=== PATIENT | male | born 1965 | race Caucasian/White ===

== ENCOUNTER 2018-02-23 14:46 | Inpatient (IN) | payer OTHER ==
[2018-02-23] MEDS ORDERED: ONDANSETRON 4 MG/2 ML VIAL IVP STA (15:05)
[2018-02-23] MEDS ORDERED: MORPHINE SULFATE/PF 10MG/10ML VL IV STA (15:05)
[2018-02-23] MEDS ORDERED: SODIUM CHLORIDE 0.9% 1,000 ML IV STA (15:05)
[2018-02-23] MEDS ORDERED: cefTRIAXone 2,000 MG in SODIUM CHLORIDE 0.9% 100 ML IVPB STA (15:12)
[2018-02-23] MEDS ORDERED: cefTRIAXone IN SWFI 2,000 MG/20 ML SYRINGE IVP STA (15:13)
[2018-02-23 15:46] LABS: Basophils % (A) 1 %; Eosinophils # (A) 0.1 k/uL (0-0.7); Eosinophils % (A) 2 %; HCT 31.5 % (39.0-53.0); HGB 10.7 gm/dL (13.0-17.5); Lymphocytes # (A) 0.6 k/uL (1.0-4.8); Lymphocytes % (A) 8 %; MCH 33.3 pg (25.0-35.0); MCHC 33.9 g/dL (31.0-37.0); MCV 98.2 fL (80.0-100.0); Mean Platelet Volume 9.6; Monocytes # (A) 0.6 k/uL (0-1.0); Monocytes % (A) 8 %; Neutrophils # (A) 5.9 k/uL (1.3-7.7); Neutrophils % (A) 80 %; RBC 3.21 m/uL (4.30-5.90); RDW 15.3 % (11.5-15.5); WBC 7.4 k/uL (3.8-10.6)
--- NOTE | 2018-02-23 15:54 | XR ---
EXAMINATION TYPE: XR chest 2V DATE OF EXAM: 02/23/2018 COMPARISON: Prior chest x-ray 11/29/2015 HISTORY: Chest pain TECHNIQUE: Frontal and lateral views of the chest are obtained. FINDINGS: There is increased retrocardiac density with obscured lateral aspect of the left hemidiaphr agm. No evident pneumothorax. Heart is enlarged, patient is rotated. Pulmonary vascularity and wyatt s how a similar appearance accounting for differences in technique. Exam appears expiratory. IMPRESSION: Findings could represent a left lower lobe pneumonia and associated effusion, follow-up recommended. There may be cardiomegaly. Follow-up is recommended.
[2018-02-23 15:56] LABS: ALT 29 U/L (21-72); AST 46 U/L (17-59); Albumin 2.8 g/dL (3.5-5.0); Alkaline Phosphatase 103 U/L (38-126); Anion Gap 7 mmol/L; Blood Urea Nitrogen 15 mg/dL (9-20); Calcium 8.3 mg/dL (8.4-10.2); Carbon Dioxide 26 mmol/L (22-30); Chloride 102 mmol/L (98-107); Glucose 87 mg/dL (74-99); Magnesium 1.7 mg/dL (1.6-2.3); Potassium 5.1 mmol/L (3.5-5.1); Sodium 135 mmol/L (137-145); Total Bilirubin 4.3 mg/dL (0.2-1.3); Total Protein 5.4 g/dL (6.3-8.2)
[2018-02-23 16:07] LABS: Creatine Kinase 77 U/L (55-170)
[2018-02-23 16:19] LABS: D-Dimer 11.69 mg/L FEU (<0.60); INR 1.5 (<1.2); Prothrombin Time 13.6 sec (9.0-12.0)
[2018-02-23 16:20] LABS: Creatine Kinase MB 0.4 ng/mL (0.0-2.4); Ovalocytes Present; Partial Thromboplastin Time 28.7 sec (22.0-30.0); Platelet Count 67 k/uL (150-450); RBC Fragments Present; Troponin I <0.012 ng/mL (0.000-0.034)
[2018-02-23] MEDS ORDERED: metroNIDAZOLE-NS PMX 500 MG in SALINE 1 100ML.BAG IVPB STA (17:25)
[2018-02-23] MEDS ORDERED: RX INFO: IV CONTRAST WAS GIVEN 1 EACH MISC MISCELLANE PRN (17:25)
--- NOTE | 2018-02-23 17:37 | ED ---
Chest Pain HPI - General Chief Complaint: Chest Pain Stated Complaint: Chest Pain Time Seen by Provider: 02/23/18 15:04 Source: patient Mode of arrival: ambulatory Limitations: no limitations - History of Present Illness Initial Comments: 53 years old male came in with chest pain, he had 2 procedures done today he status post paracentesis and thoracentesis, and arrival he has also elevated temperature which even elevated further. His stay in the ER chest pain gets worse with a deep breaths he has been coughing with some phlegm. He denies any headache no neck pain no neck stiffness has shortness of breath has chest pain worse with a deep breaths no abdominal pain no frequency urgency dysuria him a no signs of TIA or CVA - Related Data Home Medications Medication Instructions Recorded Confirmed Amitriptyline HCl [Elavil] 25 mg PO HS 11/29/15 02/23/18 Albuterol Nebulized [Ventolin 2.5 mg INHALATION RT-TID 02/23/18 02/23/18 Nebulized] Cholestyramine (with Sugar) 4 gm PO BID 02/23/18 02/23/18 [Cholestyramine Packet] Furosemide [Lasix] 40 mg PO DAILY 02/23/18 02/23/18 Hydrocortisone Suppository 25 mg RECTAL BID PRN 02/23/18 02/23/18 [Anusol-Hc] Lactulose 10 gm PO BID 02/23/18 02/23/18 Omeprazole [PriLOSEC] 20 mg PO AC-BRKFST 02/23/18 02/23/18 Propranolol HCl 10 mg PO TID 02/23/18 02/23/18 Spironolactone 100 mg PO QAM 02/23/18 02/23/18 Allergies Allergy/AdvReac Type Severity Reaction Status Date / Time Quinolones Allergy Unknown Verified 02/23/18 15:56 tetanus and diphtheria Allergy Unknown Verified 02/23/18 15:56 toxoids [tetanus & diphtheria toxoids] Review of Systems ROS Statement: Those systems with pertinent positive or pertinent negative responses have been documented in the HPI. ROS Other: All systems not noted in ROS Statement are negative. Past Medical History Past Medical History: Sleep Apnea/CPAP/BIPAP, Supraventricular Tachycardia (SVT) Additional Past Medical History / Comment(s): neuropathy, liver failure. History of Any Multi-Drug Resistant Organisms: None Reported Past Surgical History: Hernia Repair Past Anesthesia/Blood Transfusion Reactions: No Reported Reaction Past Psychological History: No Psychological Hx Reported Smoking Status: Current every day smoker Past Alcohol Use History: None Reported, Daily Past Drug Use History: None Reported - Past Family History Father Additional Family Medical History / Comment(s): aortic valve replacement Mother Family Medical History: No Reported History General Exam - General Exam Comments Initial Comments: General: The patient is awake and alert, in severe distress Skin: Skin is warm and dry and no rashes or lesions are noted. Eye: Pupils are equal, round and reactive to light, extra-ocular movements are intact; there is normal conjunctiva bilaterally. Ears, nose, mouth and throat: There are moist mucous membranes and no oral lesions. Neck: The neck is supple, there is no tenderness no signs of neck stiffness or meningitis Cardiovascular: There is a regular rate and rhythm. No murmur, rub or gallop is appreciated. Respiratory: To auscultation bilateral, poor air exchange secondary to pain Gastrointestinal: Soft, non-distended, non-tender abdomen without masses or organomegaly noted. There is no rebound or guarding present. Bowel sounds are unremarkable. Back: There is no tenderness to palpation in the midline. There is no obvious deformity. Musculoskeletal: Normal ROM, no tenderness, There is no pedal edema. There is no calf tenderness or swelling. No cords were appreciated. Neurological: CN II-XII intact, Cranial nerves III through XII are intact. There are no obvious motor or sensory deficits. Coordination appears grossly intact. Speech is normal. Psychiatric: Cooperative, appropriate mood & affect, normal judgment. Limitations: no limitations Course Vital Signs 02/23/18 02/23/18 02/23/18 14:50 15:54 17:00 Temperature 100.0 F H 100.7 F H Pulse Rate 79 77 69 Respiratory 18 18 22 Rate Blood Pressure 124/71 135/69 157/56 O2 Sat by Pulse 100 98 Oximetry EKG is normal sinus rhythm ventricular rate is 76 AK interval is 158 QRS duration is 88 QT/QTc is 370/416 review of this EKG does not reveal any ST elevation or ST depression Patient is reassessed, CBC is normal d-dimer is 11.69 compressive metabolic panel is unremarkable INR is 1.5 troponin is negative EKG was unremarkable chest x-ray confirmed pneumonia and pleural effusion and he did spike a fever couple times in the ER, I cultured blood and urine and started him on numb and antibiotics Rocephin 2 g IV added Flagyl considering he had a paracentesis today , Dr Shi will f/u on the ct chest angio to R/o PE, spoke with the Dr. Quezada for admission for the 3 sets of cardiac markers with the chest pain and CT angiogenesis still pending Disposition Clinical Impression: Pneumonia, Chest pain, Elevated d-dimer Disposition: ADMITTED IP TO THIS HOSP Condition: Good Referrals: Cherry Ortiz MD [Primary Care Provider] - 1-2 days
[2018-02-23] MEDS ORDERED: ONDANSETRON 4 MG/2 ML VIAL IVP PRN (17:42)
[2018-02-23] MEDS ORDERED: NALOXONE 0.4 MG/ML 1 ML VIAL IV PRN (17:42)
[2018-02-23] MEDS ORDERED: HYDROCORTISONE SUPPOSITORY 25 MG SUPP RECTAL PRN (17:47)
--- NOTE | 2018-02-23 18:34 | CT ---
EXAMINATION TYPE: CT angio chest DATE OF EXAM: 02/23/2018 5:59 PM COMPARISON: NONE HISTORY: Shortness of breath. History of liver failure. Thoracentesis and paracentesis today. CT DLP: 579 mGycm Automated exposure control for dose reduction was used. CONTRAST: CTA scan of the thorax is performed with IV Contrast, patient injected with 100 mL of Isovue 370, pul monary embolism protocol. There are 3-D post processed images.. FINDINGS: There is moderate left pleural effusion. There is small right pleural effusion. There is consolidatio n and atelectasis at the lung bases and more on the left side. Heart is enlarged. There is no pericar dial effusion. There is probably ascites. I see no filling defects in the pulmonary arteries. There is no mediastinal adenopathy. There are no hilar masses. There is no evidence of aortic aneurysm or dissection. Ascending aorta measures 3.5 cm. Bony structures are intact. IMPRESSION: NO EVIDENCE OF PULMONARY EMBOLISM. PLEURAL EFFUSIONS WITH CONSOLIDATION AND ATELECTASIS AT THE LUNG BASES. MILD CARDIOMEGALY. PROBABLE A SCITES. THERE IS A VERY TINY LEFT APICAL PNEUMOTHORAX CONSISTENT WITH THE THORACENTESIS TODAY.
--- NOTE | 2018-02-23 18:43 | P.HPIM ---
History of Present Illness H&P Date: 02/23/18 Chief Complaint: Chest pain The patient is a 52-year-old male the past medical history of alcoholic liver cirrhosis who presents to the ER with chief complaint of chest pain. Apparently earlier today the patient underwent a thoracic centesis and paracentesis secondary to recurrent pleural effusion and abdominal ascites related to his ongoing liver cirrhosis. The patient reports that approximately 3 L was taken from his left lung and approximately 2 L was taken from his abdomen, following these procedures the patient was on his way home and driving and suddenly felt left sided 10 out of 10 squeezing chest pressure, with no associated nausea vomiting or diaphoresis or shortness of air. The patient reports intermittent cough and also reports intermittent fevers The patient reports the pain had been ongoing for the last several hours of relief. The patient reports having stress test this past Tuesday at [facility] as part of his pre-potential liver transplant workup, the patient is unaware of the results. At in the ER the patient had a elevated d-dimer of 11.59, his initial EKG and cardiac enzymes are negative for any sedation acute ischemia, chest x-ray suggested a possible left lower lobe pneumonia and associated effusion, subsequent CTA was negative for any acute pulmonary embolism but did show pleural effusions with consolidation and atelectasis at the lung bases, mild cardiomegaly and probable ascites and a tiny left apical pneumothorax consistent with today's thoracentesis Past Medical History Past Medical History: Sleep Apnea/CPAP/BIPAP, Supraventricular Tachycardia (SVT) Additional Past Medical History / Comment(s): neuropathy, liver failure. History of Any Multi-Drug Resistant Organisms: None Reported Past Surgical History: Hernia Repair Past Anesthesia/Blood Transfusion Reactions: No Reported Reaction Past Psychological History: No Psychological Hx Reported Smoking Status: Current every day smoker Past Alcohol Use History: None Reported, Daily Past Drug Use History: None Reported - Past Family History Father Additional Family Medical History / Comment(s): aortic valve replacement Mother Family Medical History: No Reported History Medications and Allergies Home Medications Medication Instructions Recorded Confirmed Type Amitriptyline HCl [Elavil] 25 mg PO HS 11/29/15 02/23/18 History Albuterol Nebulized [Ventolin 2.5 mg INHALATION RT-TID 02/23/18 02/23/18 History Nebulized] Cholestyramine (with Sugar) 4 gm PO BID 02/23/18 02/23/18 History [Cholestyramine Packet] Furosemide [Lasix] 40 mg PO DAILY 02/23/18 02/23/18 History Hydrocortisone Suppository 25 mg RECTAL BID PRN 02/23/18 02/23/18 History [Anusol-Hc] Lactulose 10 gm PO BID 02/23/18 02/23/18 History Multivitamin [Men's Multi-Vitamin] 1 tab PO DAILY 02/23/18 02/23/18 History Omeprazole [PriLOSEC] 20 mg PO AC-BRKFST 02/23/18 02/23/18 History Propranolol HCl 10 mg PO TID 02/23/18 02/23/18 History Spironolactone 100 mg PO QAM 02/23/18 02/23/18 History Turmeric Root Extract [Turmeric] 500 mg PO DAILY 02/23/18 02/23/18 History Ubidecarenone [Co Q-10] 100 mg PO DAILY 02/23/18 02/23/18 History Allergies Allergy/AdvReac Type Severity Reaction Status Date / Time gabapentin Allergy Unknown Verified 02/23/18 18:16 Quinolones Allergy Unknown Verified 02/23/18 15:56 tetanus and diphtheria Allergy Unknown Verified 02/23/18 15:56 toxoids [tetanus & diphtheria toxoids] Physical Exam Vitals: Vital Signs Temp Pulse Resp BP Pulse Ox 02/23/18 17:56 73 20 118/61 98 02/23/18 17:00 69 22 157/56 02/23/18 15:54 100.7 F H 77 18 135/69 98 02/23/18 14:50 100.0 F H 79 18 124/71 100 Intake and Output 02/23/18 02/23/18 02/23/18 06:59 14:59 22:59 Output Total 25 Balance -25 Output: Urine 25 Other: Weight 106.594 kg Constitutional: No acute distress, conversant, pleasant Eyes: Anicteric sclerae, moist conjunctiva, no lid-lag, PERRLA ENMT: NC/AT,Oropharynx clear, no erythema, exudates Neck:Supple, FROM, no masses, or JVD, No carotid bruits; No thyromegaly Lungs: Clear to auscultation, Clear to percussion, Normal respiratory effort, no accessory muscle use Cardiovascular: Heart regular in rate and rhythm, No murmurs, gallops, or rubs no peripheral edema Abdominal: Soft Nontender, nom distended, no guarding, no rebound or rigidity, Normoactive bowel sounds No hepatomegaly, No splenomegaly, No palpable mass No abdominal wall hernia noted Skin: Normal temperature, tone, texture, turgor, No induration No subcutaneous nodules, No rash, lesions, No ulcers Extremities:No digital cyanosis No clubbing, Pedal pulses intact and symmetrical Radial pulses intact and symmetrical Normal gait and station, No calf tenderness Psychiatric: Alert and oriented to person, place and time, Appropriate affect Intact judgement Neuro: Muscles Strength 5/5 in all 4 extremities, Sensation to light touch grossly present throughout, Cranial nerves II-XII grossly intact. No focal sensory deficits Results CBC & Chem 7: 02/23/18 15:25 02/23/18 15:25 Labs: Abnormal Lab Results - Last 24 Hours (Table) 02/23/18 02/23/18 02/23/18 Range/Units 15:25 15:25 15:25 RBC 3.21 L (4.30-5.90) m/uL Hgb 10.7 L (13.0-17.5) gm/dL Hct 31.5 L (39.0-53.0) % Plt Count 67 L (150-450) k/uL Lymphocytes # 0.6 L (1.0-4.8) k/uL PT 13.6 H (9.0-12.0) sec INR 1.5 H (<1.2) D-Dimer 11.69 H (<0.60) mg/L FEU Sodium 135 L (137-145) mmol/L Calcium 8.3 L (8.4-10.2) mg/dL Total Bilirubin 4.3 H (0.2-1.3) mg/dL Total Protein 5.4 L (6.3-8.2) g/dL Albumin 2.8 L (3.5-5.0) g/dL Assessment and Plan Assessment: Chronic conditions Chronic thrombocytopenia Alcoholic cirrhosis 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 Neuropathy (1) Atypical chest pain Current Visit: Yes Status: Acute Code(s): R07.89 - OTHER CHEST PAIN SNOMED Code(s): 631775780 (2) Alcoholic cirrhosis of liver Current Visit: Yes Status: Acute Code(s): K70.30 - ALCOHOLIC CIRRHOSIS OF LIVER WITHOUT ASCITES SNOMED Code(s): 963789965 (3) Pneumonia Current Visit: Yes Status: Acute Code(s): J18.9 - PNEUMONIA, UNSPECIFIED ORGANISM SNOMED Code(s): 963961960 (4) Intermittent fever Current Visit: Yes Status: Acute Code(s): R50.9 - FEVER, UNSPECIFIED SNOMED Code(s): 39278035 (5) Coagulopathy Current Visit: Yes Status: Acute Code(s): D68.9 - COAGULATION DEFECT, UNSPECIFIED SNOMED Code(s): 41234491 Plan: The patient is admitted for atypical chest pain anticipate a less than 2 midnight stay. His initial EKG and cardiac enzymes are negative for any acute ischemia. Continue with routine chest pain orders. We'll attempt to request records from [facility] regarding his stress test that he had on Tuesday, we'll also request records from [facility] regarding patient's procedure and last discharge summary. We'll plan to consult ID for patient's intermittent fevers there's a possibility he does have pneumonia we'll continue her current antibiotic regimen. We'll plan to consult cardiology for further recommendations. Of note the patient does have chronic coagulopathy likely related to his underlying alcoholic liver cirrhosis, along with chronic thrombocytopenia. The patient's hyperbilirubinemia is also likely chronic due to his underlying alcoholic cirrhosis.
[2018-02-23] MEDS: ALBUTEROL NEBULIZED 2.5 MG/3 ML INHALATION SCH (20:15)
[2018-02-23 21:14] VITALS: BMI 34.3
[2018-02-23] MEDS: PROPRANOLOL 10 MG TAB PO SCH (21:18)
[2018-02-23] MEDS: LACTULOSE 20 GM/30 ML CUP PO SCH (21:18)
[2018-02-23] MEDS: AMITRIPTYLINE HCL 25 MG TAB PO SCH (21:18)
[2018-02-23] MEDS: CHOLESTYRAMINE (WITH SUGAR) 4 GM PACKET PO SCH (21:18)
[2018-02-23] MEDS: MORPHINE SULFATE/PF 10MG/10ML VL IV PRN (21:20)
--- NOTE | 2018-02-23 21:45 | CONS ---
CONSULTATION Aaron Garcia is a 52-year-old gentleman with advanced liver disease/cirrhosis secondary to alcoholism, which he finally quit drinking in April or May of last year. He has his health care for his liver issues at [facility]. Earlier today, he had 2 L of fluid taken out from his abdomen and this was all ascitic fluid. He also had 3 L taken from his left lung area, a pleural effusion. After this, he came into the hospital with progressively worsening pleuritic pain and has been hospitalized. He also had an elevated D-dimer and a CT angiography was performed which did not reveal any pulmonary embolism. Both thoracentesis on the left side and paracentesis were performed at [facility] and about 2 days ago, this gentleman had a nuclear scan with Lexiscan, which was normal per patient. He had a complete cardiac workup as well. Two years ago, he had a cardiac cath which revealed mild disease in the branches of RCA. He is resting comfortably at the time of my evaluation. His pleuritic pain has also been better. PAST MEDICAL HISTORY: 1. Advanced liver disease with cirrhosis secondary to alcoholism. 2. History of anemia. 3. History of paroxysmal supraventricular tachycardia, which is not an active problem at this time. He also has obstructive sleep apnea, wears a CPAP, but not very consistently. 4. The patient continues to smoke every day, but has stopped alcohol since April or May of last year. ALLERGIES: He is allergic to QUINOLONES and TETANUS TOXOID. MEDICATIONS: Include: 1. Prilosec. 2. Propranolol 10 mg t.i.d. 3. Aldactone 100 mg daily. 4. Amitriptyline 25 mg daily. 5. Lasix 40 mg daily. 6. Hydrocortisone suppository. His CT and angiography revealed that he has a consolidation/pneumonia involving the left lung more than the right lung. There is a small right-sided pleural effusion, moderate left-sided pleural effusion. There is a borderline cardiac enlargement. No pericardial effusion. There is no evidence of any pulmonary embolism and no evidence of any aortic pathology. EXAMINATION: Blood pressure is 130/70, pulse rate 70 per minute, regular. HEENT: Unremarkable. Fundus was not examined by me. Patient appears to be slightly jaundiced. Neck is supple. There is JVD of 1 cm. No carotid bruit. Heart reveals S1, S2 with a short systolic murmur at left sternal border. Lungs reveal diminished breath sounds both bases, more so on the left. Abdomen is distended. Free fluid is evident. Lower extremities reveal diminished pulses. There is bilateral 2+ edema. CENTRAL NERVOUS SYSTEM: Grossly no focal deficits. EKG revealed sinus mechanism, poor R-wave progression, no acute changes. Laboratory data reveals that 1st set of troponin is normal. INR is 1.5. D-dimer is 11.69. IMPRESSION: 1. Elevated D-dimer of unclear etiology, probably related to multiple comorbid conditions, including cirrhosis of the liver and also inflammatory processes. 2. Status post thoracentesis and paracentesis with a tiny left-sided pneumothorax. 3. No evidence to suggest any significant coronary artery disease, had a negative Lexiscan stress test 2 days ago and a unremarkable cardiac catheterization 2 years ago. 4. History of ascites and lower extremity edema secondary to liver failure and low albumin levels. RECOMMENDATIONS: I am recommending that we discontinue his nitro paste. No intervention is necessary from a cardiac standpoint and the patient can be discharged whenever it is okay with the primary care/admitting physician. There is a tiny left apical pneumothorax which can probably be followed up. Clinically, his pain is better. His oxygen saturation is good. No intervention necessary from a cardiac standpoint, and I will see this patient as needed. Thank you very much for the consult. MMODL / IJN: [id number] /
[2018-02-24] MEDS: MORPHINE SULFATE/PF 10MG/10ML VL IV PRN (02:01)
[2018-02-24] MEDS: ALBUTEROL NEBULIZED 2.5 MG/3 ML INHALATION SCH ×3 (07:49→20:16)
[2018-02-24] MEDS: PANTOPRAZOLE 40 MG TABLET PO SCH (08:13)
[2018-02-24] MEDS: FUROSEMIDE 40 MG TAB PO SCH (08:13)
[2018-02-24] MEDS: SPIRONOLACTONE 25 MG TAB PO SCH (08:13)
[2018-02-24] MEDS: LACTULOSE 20 GM/30 ML CUP PO SCH ×2 (08:14→20:24)
[2018-02-24] MEDS: PROPRANOLOL 10 MG TAB PO SCH ×3 (08:14→20:24)
[2018-02-24] MEDS: CHOLESTYRAMINE (WITH SUGAR) 4 GM PACKET PO SCH ×3 (08:14→20:31)
[2018-02-24 10:02] LABS: Basophils % (A) 0 %; Eosinophils # (A) 0.1 k/uL (0-0.7); Eosinophils % (A) 1 %; HCT 29.5 % (39.0-53.0); HGB 9.8 gm/dL (13.0-17.5); Lymphocytes # (A) 0.9 k/uL (1.0-4.8); Lymphocytes % (A) 11 %; MCH 33.6 pg (25.0-35.0); MCHC 33.2 g/dL (31.0-37.0); MCV 101.1 fL (80.0-100.0); Macrocytosis Slight; Mean Platelet Volume 8.5; Monocytes # (A) 0.8 k/uL (0-1.0); Monocytes % (A) 9 %; Neutrophils # (A) 6.7 k/uL (1.3-7.7); Neutrophils % (A) 76 %; RBC 2.92 m/uL (4.30-5.90); RDW 14.8 % (11.5-15.5); WBC 8.8 k/uL (3.8-10.6)
[2018-02-24 10:04] LABS: ALT 29 U/L (21-72); AST 49 U/L (17-59); Albumin 2.8 g/dL (3.5-5.0); Alkaline Phosphatase 88 U/L (38-126); Anion Gap 3 mmol/L; Blood Urea Nitrogen 21 mg/dL (9-20); Calcium 8.4 mg/dL (8.4-10.2); Carbon Dioxide 26 mmol/L (22-30); Chloride 99 mmol/L (98-107); Glucose 109 mg/dL (74-99); Sodium 128 mmol/L (137-145); Total Bilirubin 7.1 mg/dL (0.2-1.3); Total Protein 5.4 g/dL (6.3-8.2)
[2018-02-24 10:09] LABS: Platelet Count 60 k/uL (150-450)
[2018-02-24 10:15] LABS: Potassium 6.6 mmol/L (3.5-5.1)
[2018-02-24] MEDS ORDERED: SODIUM POLYSTYRENE SULFONATE 15 GM/60 ML BOTTLE PO STA (10:32)
[2018-02-24] MEDS ORDERED: INSULIN ASPART 100 UNIT/ML 1 ML 10 ML VIAL SQ ONE (10:35)
[2018-02-24] MEDS ORDERED: DEXTROSE 50%-WATER 50 ML SYRINGE IVP STA (10:36)
[2018-02-24] MEDS ORDERED: CALCIUM GLUCONATE 1,000 MG in SODIUM CHLORIDE 0.9% 100 ML IVPB ONE (10:45)
[2018-02-24] MEDS ORDERED: MORPHINE SULFATE IR 15 MG TABLET PO PRN (12:50)
--- NOTE | 2018-02-24 14:25 | PN ---
PROGRESS NOTE Aaron Garcia is a 52-year-old gentleman with advanced liver disease secondary to alcoholism. He apparently had a lot of testing performed including echocardiogram and stress test at [facility]. According to him, the nuclear scan 3 days ago was normal. He is feeling much better. His pleuritic pain on the left side has resolved. This was probably related to his recent thoracenteses and a small pneumothorax. Oxygen saturation is good. Vital signs are stable S1, S2 heard normally. Lungs reveal diminished air entry especially left base. Abdomen is distended, free fluid is noted. Lower extremities reveal mild to moderate bilateral edema. I am recommending that we do not do any additional cardiac workup for this patient. He can be discharged and followed up with his primary care physician and the igniter capper at [facility]. Thank you very much for the consult. AL / SYDNEY: [id number] /
--- NOTE | 2018-02-24 15:11 | P.PN ---
Subjective Progress Note Date: 02/24/18 The patient is feeling much better without chest pain, having good oxygen saturations on 2 L, patient noted to be hyperkalemic at 6.6 on this morning's labs, has been seen by cardiology earlier today Objective - Vital Signs Vital signs: Vital Signs Temp 97.9 F 02/24/18 11:42 Pulse 75 02/24/18 13:39 Resp 16 02/24/18 11:42 BP 110/56 02/24/18 11:42 Pulse Ox 98 02/24/18 11:42 Intake & Output 02/23/18 02/24/18 02/24/18 18:59 06:59 18:59 Intake Total 240 236 Output Total 25 Balance -25 240 236 Weight 106.594 kg 102.5 kg Intake: Oral 240 236 Output: Urine 25 Other: # Voids 1 - Exam Constitutional: No acute distress, conversant, pleasant Eyes: Anicteric sclerae, moist conjunctiva, no lid-lag, PERRLA ENMT: NC/AT,Oropharynx clear, no erythema, exudates Neck:Supple, FROM, no masses, or JVD, No carotid bruits; No thyromegaly Lungs: Clear to auscultation, Clear to percussion, Normal respiratory effort, no accessory muscle use Cardiovascular: Heart regular in rate and rhythm, No murmurs, gallops, or rubs no peripheral edema Abdominal: Soft Nontender, nom distended, no guarding, no rebound or rigidity, Normoactive bowel sounds No hepatomegaly, No splenomegaly, No palpable mass No abdominal wall hernia noted Skin: Normal temperature, tone, texture, turgor, No induration No subcutaneous nodules, No rash, lesions, No ulcers Extremities:No digital cyanosis No clubbing, Pedal pulses intact and symmetrical Radial pulses intact and symmetrical Normal gait and station, No calf tenderness Psychiatric: Alert and oriented to person, place and time, Appropriate affect Intact judgement Neuro: Muscles Strength 5/5 in all 4 extremities, Sensation to light touch grossly present throughout, Cranial nerves II-XII grossly intact. No focal sensory deficits - Labs CBC & Chem 7: 02/24/18 09:41 02/24/18 09:41 Labs: Abnormal Lab Results - Last 24 Hours (Table) 02/23/18 02/23/18 02/23/18 Range/Units 15:25 15:25 15:25 RBC 3.21 L (4.30-5.90) m/uL Hgb 10.7 L (13.0-17.5) gm/dL Hct 31.5 L (39.0-53.0) % MCV (80.0-100.0) fL Plt Count 67 L (150-450) k/uL Lymphocytes # 0.6 L (1.0-4.8) k/uL PT 13.6 H (9.0-12.0) sec INR 1.5 H (<1.2) D-Dimer 11.69 H (<0.60) mg/L FEU Sodium 135 L (137-145) mmol/L Potassium (3.5-5.1) mmol/L BUN (9-20) mg/dL Glucose (74-99) mg/dL Calcium 8.3 L (8.4-10.2) mg/dL Total Bilirubin 4.3 H (0.2-1.3) mg/dL Total Protein 5.4 L (6.3-8.2) g/dL Albumin 2.8 L (3.5-5.0) g/dL 02/24/18 02/24/18 Range/Units 09:41 09:41 RBC 2.92 L (4.30-5.90) m/uL Hgb 9.8 L (13.0-17.5) gm/dL Hct 29.5 L (39.0-53.0) % MCV 101.1 H (80.0-100.0) fL Plt Count 60 L (150-450) k/uL Lymphocytes # 0.9 L (1.0-4.8) k/uL PT (9.0-12.0) sec INR (<1.2) D-Dimer (<0.60) mg/L FEU Sodium 128 L (137-145) mmol/L Potassium 6.6 H* (3.5-5.1) mmol/L BUN 21 H (9-20) mg/dL Glucose 109 H (74-99) mg/dL Calcium (8.4-10.2) mg/dL Total Bilirubin 7.1 H (0.2-1.3) mg/dL Total Protein 5.4 L (6.3-8.2) g/dL Albumin 2.8 L (3.5-5.0) g/dL Microbiology - Last 24 Hours (Table) 02/23/18 15:35 Urine Culture - Preliminary Urine,Voided Assessment and Plan (1) Atypical chest pain Narrative/Plan: * Patient cleared by cardiology * Appreciate recommendations * Cyclic troponins and cardiac enzymes are negative, EKG with no suggestion of ischemia * Recent Lexiscan stress test Current Visit: Yes Status: Acute Code(s): R07.89 - OTHER CHEST PAIN SNOMED Code(s): 945794557 (2) Alcoholic cirrhosis of liver Narrative/Plan: * Status post thoracentesis and paracentesis secondary to recurrent pleural effusions and recurrent ascites due to his underlying alcoholic liver disease Current Visit: Yes Status: Acute Code(s): K70.30 - ALCOHOLIC CIRRHOSIS OF LIVER WITHOUT ASCITES SNOMED Code(s): 301425569 (3) Pneumonia Current Visit: Yes Status: Acute Code(s): J18.9 - PNEUMONIA, UNSPECIFIED ORGANISM SNOMED Code(s): 203532801 (4) Intermittent fever Narrative/Plan: * Patient afebrile since being admitted, has not received any antibiotics * Urine culture pending, blood culture pending * Consult ID Dr. Mirza for further recommendations I Current Visit: Yes Status: Acute Code(s): R50.9 - FEVER, UNSPECIFIED SNOMED Code(s): 68175659 (5) Coagulopathy Narrative/Plan: * On till anticoagulated secondary to alcoholic liver disease and cirrhosis Current Visit: Yes Status: Acute Code(s): D68.9 - COAGULATION DEFECT, UNSPECIFIED SNOMED Code(s): 21364642 (6) Hyperkalemia Narrative/Plan: * Potassium at 6.6 today * We'll give calcium gluconate/ Kayexalate, subcu insulin and D50 and recheck later today Current Visit: Yes Status: Acute Code(s): E87.5 - HYPERKALEMIA SNOMED Code (s): 91946871 Plan: We will await recommendations from consultants continue to follow closely
[2018-02-24] MEDS: AMITRIPTYLINE HCL 25 MG TAB PO SCH (20:24)
[2018-02-24] MEDS ORDERED: MELATONIN 5 MG TABLET PO PRN (22:34)
[2018-02-25] MEDS: PANTOPRAZOLE 40 MG TABLET PO SCH (06:08)
[2018-02-25 06:29] LABS: ALT 27 U/L (21-72); AST 47 U/L (17-59); Albumin 2.2 g/dL (3.5-5.0); Alkaline Phosphatase 83 U/L (38-126); Anion Gap 8 mmol/L; Blood Urea Nitrogen 24 mg/dL (9-20); Calcium 7.9 mg/dL (8.4-10.2); Carbon Dioxide 26 mmol/L (22-30); Chloride 99 mmol/L (98-107); Glucose 122 mg/dL (74-99); Potassium 4.2 mmol/L (3.5-5.1); Sodium 133 mmol/L (137-145); Total Bilirubin 3.4 mg/dL (0.2-1.3); Total Protein 4.4 g/dL (6.3-8.2)
[2018-02-25 06:37] LABS: Basophils % (A) 0 %; Eosinophils # (A) 0.1 k/uL (0-0.7); Eosinophils % (A) 2 %; HCT 25.6 % (39.0-53.0); HGB 8.5 gm/dL (13.0-17.5); Lymphocytes # (A) 1.1 k/uL (1.0-4.8); Lymphocytes % (A) 17 %; MCH 32.6 pg (25.0-35.0); MCHC 33.3 g/dL (31.0-37.0); MCV 98.1 fL (80.0-100.0); Mean Platelet Volume 8.8; Monocytes # (A) 0.6 k/uL (0-1.0); Monocytes % (A) 10 %; Neutrophils # (A) 4.1 k/uL (1.3-7.7); Neutrophils % (A) 66 %; RBC 2.61 m/uL (4.30-5.90); WBC 6.1 k/uL (3.8-10.6)
[2018-02-25 06:45] LABS: Platelet Count 50 k/uL (150-450)
[2018-02-25] MEDS: CHOLESTYRAMINE (WITH SUGAR) 4 GM PACKET PO SCH (07:35)
[2018-02-25] MEDS: SPIRONOLACTONE 25 MG TAB PO SCH (07:36)
[2018-02-25] MEDS: FUROSEMIDE 40 MG TAB PO SCH (07:36)
[2018-02-25] MEDS: PROPRANOLOL 10 MG TAB PO SCH (07:36)
[2018-02-25] MEDS: LACTULOSE 20 GM/30 ML CUP PO SCH (07:36)
[2018-02-25 07:41] VITALS: RESP 18
[2018-02-25 10:49] VITALS: BP 105/56; PULSE 73; TEMP 98.5
--- NOTE | 2018-02-25 11:03 | P.DS ---
Providers Date of admission: 02/24/18 15:56 Attending physician: Brando Pino MD Consults: 02/23/18 17:42 Consult Physician Stat Consulting Provider: Fabian De Guzman Consult Reason/Comments: Chest pain Do you want consulting provider notified?: Yes 02/25/18 08:51 Consult Physician Routine Consulting Provider: Dwight Mirza Consult Reason/Comments: intermittent fevers, antibiotic guidance Do you want consulting provider notified?: Yes Primary care physician: Cherry Ortiz - Discharge Diagnosis(es) (1) Atypical chest pain Current Visit: Yes Status: Acute (2) Alcoholic cirrhosis of liver Current Visit: Yes Status: Acute (3) Pneumonia Current Visit: Yes Status: Acute (4) Intermittent fever Current Visit: Yes Status: Acute (5) Coagulopathy Current Visit: Yes Status: Acute (6) Hyperkalemia Current Visit: Yes Status: Acute Hospital Course: The patient is a 52-year-old male that presented with atypical chest pain after leaving the hospital at [facility] where he had recently had a left-sided thoracentesis and abdominal paracentesis of 1.3 and 2 L respectively secondary to history of recurrent pleural effusions and ascites due to his underlying alcoholic liver disease. The patient's initial and sequential EKG and cardiac enzymes are negative for any suggestion of acute ischemia, the patient reportedly had had a nuclear stress test 2 days prior at [facility] in preparation and screening to be a potential liver transplant candidate. The patient reported to cardiology Dr. Donahue that it was apparently negative for any suggestion of coronary artery disease. The patient was scheduled to be discharged home but had a moderate hyperkalemia of 6.6 on his repeat labs, he was given calcium gluconate, 10 units of regular insulin, an amp of D50 and Kayexalate which gradually normalized his potassium 4.2 on day of discharge. The patient was noted to be febrile and had given a history of intermittent fevers, his urinalysis and blood cultures were negative, chest x-ray was suggestive of pneumonia however CTA of the chest show pleural effusions with consolidation and a tiny left apical pneumothorax,which the patient reported to be chronic. He was subsequently started discharged home in stable condition told to follow-up with PCP next 3 days. This discharge process took approximately 30 minutes. Constitutional: No acute distress, conversant, pleasant Eyes: Anicteric sclerae, moist conjunctiva, no lid-lag, PERRLA ENMT: NC/AT,Oropharynx clear, no erythema, exudates Neck:Supple, FROM, no masses, or JVD, No carotid bruits; No thyromegaly Lungs: Clear to auscultation, Clear to percussion, Normal respiratory effort, no accessory muscle use Cardiovascular: Heart regular in rate and rhythm, No murmurs, gallops, or rubs no peripheral edema Abdominal: Soft Nontender, nom distended, no guarding, no rebound or rigidity, Normoactive bowel sounds No hepatomegaly, No splenomegaly, No palpable mass No abdominal wall hernia noted Skin: Normal temperature, tone, texture, turgor, No induration No subcutaneous nodules, No rash, lesions, No ulcers Extremities:No digital cyanosis No clubbing, Pedal pulses intact and symmetrical Radial pulses intact and symmetrical Normal gait and station, No calf tenderness Psychiatric: Alert and oriented to person, place and time, Appropriate affect Intact judgement Neuro: Muscles Strength 5/5 in all 4 extremities, Sensation to light touch grossly present throughout, Cranial nerves II-XII grossly intact. No focal sensory deficits Patient Condition at Discharge: Good Plan - Discharge Summary New Discharge Prescriptions: Continue Amitriptyline HCl [Elavil] 25 mg PO HS Albuterol Nebulized [Ventolin Nebulized] 2.5 mg INHALATION RT-TID Spironolactone 100 mg PO QAM Omeprazole [PriLOSEC] 20 mg PO AC-BRKFST Hydrocortisone Suppository [Anusol-Hc] 25 mg RECTAL BID PRN PRN Reason: Constipation Furosemide [Lasix] 40 mg PO DAILY Propranolol HCl 10 mg PO TID Lactulose 10 gm PO BID Cholestyramine (with Sugar) [Cholestyramine Packet] 4 gm PO BID Ubidecarenone [Co Q-10] 100 mg PO DAILY Turmeric Root Extract [Turmeric] 500 mg PO DAILY Discharge Medication List Amitriptyline HCl [Elavil] 25 mg PO HS 11/29/15 [History] Albuterol Nebulized [Ventolin Nebulized] 2.5 mg INHALATION RT-TID 02/23/18 [ History] Cholestyramine (with Sugar) [Cholestyramine Packet] 4 gm PO BID 02/23/18 [ History] Furosemide [Lasix] 40 mg PO DAILY 02/23/18 [History] Hydrocortisone Suppository [Anusol-Hc] 25 mg RECTAL BID PRN 02/23/18 [History] Lactulose 10 gm PO BID 02/23/18 [History] Omeprazole [PriLOSEC] 20 mg PO AC-BRKFST 02/23/18 [History] Propranolol HCl 10 mg PO TID 02/23/18 [History] Spironolactone 100 mg PO QAM 02/23/18 [History] Turmeric Root Extract [Turmeric] 500 mg PO DAILY 02/23/18 [History] Ubidecarenone [Co Q-10] 100 mg PO DAILY 02/23/18 [History] Follow up Appointment(s)/Referral(s): Cherry Ortiz MD [Primary Care Provider] - 1-2 days
[2018-02-25] MEDS: ALBUTEROL NEBULIZED 2.5 MG/3 ML INHALATION SCH (11:17)
--- NOTE | 2018-03-08 13:41 | CDI ---
Last Revision, October 2017 Documentation Clarification Form Date: 03/08/18 From: NADEEN Arrieta Phone: If you have question, contact Lily Ropergabriela, [employer] at [phone] Admit Date: 02/24/2018 3:56:00 PM Patient Name: Aaron Garcia Visit Number: [id number] Discharge Date: 02/25/18 ATTENTION: The Clinical Documentation Specialists (CDI) and [facility] Coding Staff appreciate your assistance in clarifying documentation. Please respond to the clarification below the line at the bottom and electronically sign. The CDI & [facility] Coding staff will review the response and follow-up if needed. Please note: Queries are made part of the Legal Health Record. If you have any questions, please contact the author of this message via ITS. Dr. Brando Pino Mr. Garcia presented on 02/24 with atypical chest pain after leaving the hospital where he had recently had a thoracentesis and paracentesis. Cardiac workup was negative. The patient was noted to be febrile and had given a history of intermittent fevers. Chest xray was suggestive of pneumonia, however CTA of the chest showed pleural effusions with consolidation and a tiny left apical pneumothorax, which the patient reported to be chronic. Pneumonia is listed as acute status on the discharge diagnosis list. He was given Rocephin added Flagyl in the ED but was not discharged on antibiotics. Further clarification regarding this diagnosis of pneumonia is needed for proper reporting purposes. Please clarify Pneumonia, ruled in. appears chronic patient receiving treatment at [facility]
== END 2018-02-25 11:27 | disposition home or self-care (01) | DRG 313 ==
LOC: EC 14:46 → 3OBS 17:43 → OBSVTOIN 02-24 15:56 → 6SEL 02-24 17:58
PROVIDERS: ADMIT Family Medicine; ATTEND Family Medicine
DX: R07.89 Other chest pain (principal); J90 Pleural effusion, not elsewhere classified; J18.9 Pneumonia, unspecified organism; D68.4 Acquired coagulation factor deficiency; D69.6 Thrombocytopenia, unspecified; E87.5 Hyperkalemia; G62.9 Polyneuropathy, unspecified; J93.81 Chronic pneumothorax; I47.1 Supraventricular tachycardia; K70.31 Alcoholic cirrhosis of liver with ascites; F10.20 Alcohol dependence, uncomplicated; F17.200 Nicotine dependence, unspecified, uncomplicated; G47.33 Obstructive sleep apnea (adult) (pediatric); Z99.89 Dependence on other enabling machines and devices; Z79.899 Other long term (current) drug therapy; Z88.7 Allergy status to serum and vaccine; Z88.8 Allergy status to other drugs, medicaments and biological substances
CPT/HCPCS: 36415; 71046; 71275; 80053; 82550; 82553; 83735; 84132; 84484; 85025; 85379; 85610; 85730; 87040; 87086; 93005; 94640; 96361; 96365; 96375; 96376; 99285

== ENCOUNTER → 2019-03-21 | Outpatient (CLI) | payer OTHER ==
[2019-03-21 19:37] LABS: Iron Saturation 7.08 (15.00-50.00)
[2019-03-23 08:01] LABS: Vit B1(Thiamine) 73 ug/L (38-122)
== END ==
LOC: LABWHC1 12:02
PROVIDERS: ATTEND Family Medicine
DX: D50.9 Iron deficiency anemia, unspecified (principal)
CPT/HCPCS: 36415; 82607; 82728; 82747; 83540; 83550; 84425

== ENCOUNTER 2021-03-21 15:36 | Inpatient (IN) | payer OTHER ==
--- NOTE | 2021-03-21 16:17 | ED ---
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 Patient states he has felt off balance for the past week however today he fell but denies any injuries. Patient states this has happened to him in the past in was hepatic encephalopathy and was approximately 3 years ago. Patient states he stopped drinking one year ago but does smoke a pack a day. Patient also history of sleep apnea CPAP, hysterectomy, and liver failure. Patient denies chest pain, shortness of breath or fevers, no nausea vomiting or diarrhea. Patient alert and oriented 4 (Babatunde Douglass) - Related Data Home Medications Medication Instructions Recorded Confirmed Propranolol HCl 10 mg PO TID 02/23/18 03/21/21 Metoprolol Succinate [Toprol XL] 25 mg PO DAILY 03/21/21 03/21/21 Pantoprazole Sodium [Protonix] 40 mg PO DAILY 03/21/21 03/21/21 Rifaximin [Xifaxan] 550 mg PO BID 03/21/21 03/21/21 Previous Rx's Medication Instructions Recorded Folic Acid 1 mg PO DAILY@1200 30 Days #30 tab 03/25/21 Lactulose [Cephulac] 20 gm PO TID 30 Days #2700 ml 03/25/21 Multivitamins, Thera [Multivitamin 1 each PO DAILY@1200 30 Days #30 03/25/21 (formulary)] tab Thiamine [Vitamin B-1] 100 mg PO DAILY@1200 30 Days #30 03/25/21 tab Allergies Allergy/AdvReac Type Severity Reaction Status Date / Time ciprofloxacin [From Cipro] Allergy Unknown Verified 03/21/21 19:25 gabapentin Allergy Unknown Verified 03/21/21 19:25 Quinolones Allergy Unknown Verified 03/21/21 19:25 tetanus and diphtheria Allergy Unknown Verified 03/21/21 19:25 toxoids [tetanus & diphtheria toxoids] Review of Systems ROS Other: All systems not noted in ROS Statement are negative. <Babatunde Douglass - Last Filed: 03/21/21 19:06> ROS Other: All systems not noted in ROS Statement are negative. <Damon Johnson - Last Filed: 04/01/21 05:56> ROS Statement: Those systems with pertinent positive or pertinent negative responses have been documented in the HPI. Past Medical History Past Medical History: Sleep Apnea/CPAP/BIPAP, Supraventricular Tachycardia (SVT) Additional Past Medical History / Comment(s): neuropathy, liver failure. History of Any Multi-Drug Resistant Organisms: None Reported Past Surgical History: Hernia Repair Past Anesthesia/Blood Transfusion Reactions: No Reported Reaction Past Psychological History: No Psychological Hx Reported Past Alcohol Use History: None Reported, Daily Past Drug Use History: None Reported - Past Family History Father Additional Family Medical History / Comment(s): aortic valve replacement Mother Family Medical History: No Reported History <Babatunde Douglass - Last Filed: 03/21/21 19:06> General Exam Limitations: no limitations General appearance: alert, in no apparent distress Head exam: Present: atraumatic, normocephalic, normal inspection Eye exam: Present: PERRL, EOMI, scleral icterus ENT exam: Present: normal exam, normal oropharynx, mucous membranes moist Neck exam: Present: normal inspection, full ROM. Absent: tenderness, meningismus, lymphadenopathy Respiratory exam: Present: normal lung sounds bilaterally. Absent: respiratory distress, wheezes, rales, rhonchi, stridor, chest wall tenderness, accessory muscle use, decreased breath sounds Cardiovascular Exam: Present: regular rate. Absent: JVD GI/Abdominal exam: Present: distended. Absent: tenderness, rebound, hernia (ascites) Extremities exam: Present: full ROM, normal capillary refill, pedal edema. Absent: tenderness, joint swelling, calf tenderness Neurological exam: Present: alert, oriented X3, CN II-XII intact Psychiatric exam: Present: normal affect, normal mood Skin exam: Present: warm, dry, intact, normal color, other (jaundiced). Absent: rash <Babatunde Douglass - Last Filed: 03/21/21 19:06> Course Vital Signs 03/21/21 03/21/21 15:52 19:28 Temperature 98.4 F Pulse Rate 95 100 Respiratory 18 18 Rate Blood Pressure 141/80 132/81 O2 Sat by Pulse 98 99 Oximetry Medical Decision Making - Lab Data Result diagrams: 03/21/21 16:22 03/21/21 16:22 <Babatunde Douglass - Last Filed: 03/21/21 19:06> - Lab Data Result diagrams: 03/25/21 05:10 03/24/21 06:20 <Damon Johnson - Last Filed: 04/01/21 05:56> - Medical Decision Making CT of the brain negative for acute process, no intracranial hemorrhage, no midline shift. Chest x-ray shows left posterior lung pneumonia which is improved from the old exam dated January 2018. Hemoglobin and hematocrit is 7.7 and 25.3 respectively which is a drop of his hemoglobin from 2018 when it was 8.5. Ammonia level is 100, platelet count is 67, likely related to his liver disease. His BUN is 30 and his creatinine is 1.63 which is elevated from 0.91 in 2018 indicating JANET. Patient will be admitted to Dr Harrell with hepatic encephalopathy, acute kidney injury, anemia. Case discussed with Dr. Johnson was agreeable to this plan of care (Babatunde Douglass) I saw this patient in conjunction with the physician assistant professor of life sciences. I performed independent history and physical exam. Agree with case management. (Damon Johnson) - Lab Data Lab Results 03/21/21 03/21/21 03/21/21 Range/Units 16:22 16:22 16:22 WBC 5.5 (3.8-10.6) k/uL RBC 2.57 L (4.30-5.90) m/uL Hgb 7.7 L (13.0-17.5) gm/dL Hct 25.3 L (39.0-53.0) % MCV 98.3 (80.0-100.0) fL MCH 30.1 (25.0-35.0) pg MCHC 30.6 L (31.0-37.0) g/dL RDW 18.5 H (11.5-15.5) % Plt Count 67 L (150-450) k/uL MPV 10.6 Neutrophils % 76 % Lymphocytes % 12 % Monocytes % 5 % Eosinophils % 4 % Basophils % 1 % Neutrophils # 4.2 (1.3-7.7) k/uL Lymphocytes # 0.7 L (1.0-4.8) k/uL Monocytes # 0.3 (0-1.0) k/uL Eosinophils # 0.2 (0-0.7) k/uL Basophils # 0.0 (0-0.2) k/uL Manual Slide Review Performed Hypochromasia Moderate Poikilocytosis Slight Anisocytosis Slight Macrocytosis Slight PT 13.1 H (9.0-12.0) sec INR 1.3 H (<1.2) APTT 22.7 (22.0-30.0) sec Sodium 135 L (137-145) mmol/L Potassium 5.2 H (3.5-5.1) mmol/L Chloride 107 (98-107) mmol/L Carbon Dioxide 23 (22-30) mmol/L Anion Gap 5 mmol/L BUN 30 H (9-20) mg/dL Creatinine 1.63 H (0.66-1.25) mg/dL Est GFR (CKD-EPI)AfAm 54 (>60 ml/min/1.73 sqM) Est GFR (CKD-EPI)NonAf 47 (>60 ml/min/1.73 sqM) Glucose 105 H (74-99) mg/dL Calcium 8.8 (8.4-10.2) mg/dL Total Bilirubin 3.7 H (0.2-1.3) mg/dL AST 59 (17-59) U/L ALT 18 (4-49) U/L Alkaline Phosphatase 116 (38-126) U/L Ammonia (<30) umol/L Total Protein 5.3 L (6.3-8.2) g/dL Albumin 2.7 L (3.5-5.0) g/dL Urine Color Urine Appearance (Clear) Urine pH (5.0-8.0) Ur Specific [place] (1.001-1.035) Urine Protein (Negative) Urine Glucose (UA) (Negative) Urine Ketones (Negative) Urine Blood (Negative) Urine Nitrite (Negative) Urine Bilirubin (Negative) Urine Urobilinogen (<2.0) mg/dL Ur Leukocyte Esterase (Negative) Coronavirus (PCR) (Not Detectd) 03/21/21 03/21/21 03/21/21 Range/Units 16:22 16:22 19:24 WBC (3.8-10.6) k/uL RBC (4.30-5.90) m/uL Hgb (13.0-17.5) gm/dL Hct (39.0-53.0) % MCV (80.0-100.0) fL MCH (25.0-35.0) pg MCHC (31.0-37.0) g/dL RDW (11.5-15.5) % Plt Count (150-450) k/uL MPV Neutrophils % % Lymphocytes % % Monocytes % % Eosinophils % % Basophils % % Neutrophils # (1.3-7.7) k/uL Lymphocytes # (1.0-4.8) k/uL Monocytes # (0-1.0) k/uL Eosinophils # (0-0.7) k/uL Basophils # (0-0.2) k/uL Manual Slide Review Hypochromasia Poikilocytosis Anisocytosis Macrocytosis PT (9.0-12.0) sec INR (<1.2) APTT (22.0-30.0) sec Sodium (137-145) mmol/L Potassium (3.5-5.1) mmol/L Chloride (98-107) mmol/L Carbon Dioxide (22-30) mmol/L Anion Gap mmol/L BUN (9-20) mg/dL Creatinine (0.66-1.25) mg/dL Est GFR (CKD-EPI)AfAm (>60 ml/min/1.73 sqM) Est GFR (CKD-EPI)NonAf (>60 ml/min/1.73 sqM) Glucose (74-99) mg/dL Calcium (8.4-10.2) mg/dL Total Bilirubin (0.2-1.3) mg/dL AST (17-59) U/L ALT (4-49) U/L Alkaline Phosphatase (38-126) U/L Ammonia 100 H (<30) umol/L Total Protein (6.3-8.2) g/dL Albumin (3.5-5.0) g/dL Urine Color Yellow Urine Appearance Clear (Clear) Urine pH 5.5 (5.0-8.0) Ur Specific [place] 1.024 (1.001-1.035) Urine Protein Negative (Negative) Urine Glucose (UA) Negative (Negative) Urine Ketones Negative (Negative) Urine Blood Negative (Negative) Urine Nitrite Negative (Negative) Urine Bilirubin Negative (Negative) Urine Urobilinogen 2.0 (<2.0) mg/dL Ur Leukocyte Esterase Negative (Negative) Coronavirus (PCR) Not Detected (Not Detectd) Disposition Is patient prescribed a controlled substance at d/c from ED?: No Decision Date: 03/21/21 Decision Time: 19:11 <Babatunde Douglass - Last Filed: 03/21/21 19:06> <Damon Johnson - Last Filed: 04/01/21 05:56> Clinical Impression: Hepatic encephalopathy, Anemia, JANET (acute kidney injury) Disposition: ADMITTED IP TO THIS HOSP Condition: Fair
[2021-03-21 16:40] LABS: Anisocytosis Slight; Basophils % (A) 1 %; Eosinophils # (A) 0.2 k/uL (0-0.7); Eosinophils % (A) 4 %; HCT 25.3 % (39.0-53.0); HGB 7.7 gm/dL (13.0-17.5); Hypochromasia Moderate; Lymphocytes # (A) 0.7 k/uL (1.0-4.8); Lymphocytes % (A) 12 %; MCH 30.1 pg (25.0-35.0); MCHC 30.6 g/dL (31.0-37.0); MCV 98.3 fL (80.0-100.0); Macrocytosis Slight; Mean Platelet Volume 10.6; Monocytes # (A) 0.3 k/uL (0-1.0); Monocytes % (A) 5 %; Neutrophils # (A) 4.2 k/uL (1.3-7.7); Neutrophils % (A) 76 %; Poikilocytosis Slight; RBC 2.57 m/uL (4.30-5.90); RDW 18.5 % (11.5-15.5); WBC 5.5 k/uL (3.8-10.6)
[2021-03-21 16:52] LABS: Albumin 2.7 g/dL (3.5-5.0); Calcium 8.8 mg/dL (8.4-10.2); Potassium 5.2 mmol/L (3.5-5.1); Total Bilirubin 3.7 mg/dL (0.2-1.3); Total Protein 5.3 g/dL (6.3-8.2)
[2021-03-21 17:12] LABS: Platelet Count 67 k/uL (150-450)
--- NOTE | 2021-03-21 17:14 | CT ---
EXAMINATION TYPE: CT brain wo con DATE OF EXAM: 03/21/2021 COMPARISON: None HISTORY: Fall with posterior head injury. CT DLP: 1068.4 mGycm Automated exposure control for dose reduction was used. There is mild cerebral atrophy. There is no mass effect nor midline shift. There is no sign of intrac ranial hemorrhage. Calvarium is intact. There is normal aeration of the mastoid sinuses. Sella turcic a appears normal. IMPRESSION: Mild atrophy. No acute intracranial abnormality.
--- NOTE | 2021-03-21 17:16 | XR ---
EXAMINATION TYPE: XR chest 2V DATE OF EXAM: 03/21/2021 COMPARISON: 02/23/2018 HISTORY: Chest pain TECHNIQUE: 2 views FINDINGS: There is on the lateral view some infiltrate at the posterior lung base apparently on the l eft side. Heart and mediastinum are normal. There are no hilar masses. Bony thorax is intact. IMPRESSION: Pneumonia in the left posterior lung base improved compared to old exam. No heart failure . Normal heart.
[2021-03-21 17:32] LABS: INR 1.3 (<1.2); Partial Thromboplastin Time 22.7 sec (22.0-30.0); Prothrombin Time 13.1 sec (9.0-12.0)
[2021-03-21] MEDS ORDERED: LACTULOSE 20 GM/30 ML CUP PO ONE (18:51)
[2021-03-21] MEDS ORDERED: NALOXONE 0.4 MG/ML 1 ML VIAL IV PRN (18:55)
[2021-03-21 19:30] LABS: Appearance,Urine Clear (Clear); Bilirubin,Urine Negative (Negative); Blood,Urine Negative (Negative); Color,Urine Yellow; Glucose,Urine (UA) Negative (Negative); Ketones,Urine Negative (Negative); Leukocyte Esterase,Urine Negative (Negative); Nitrite,Urine Negative (Negative); PH, Urine 5.5 (5.0-8.0); Protein,Urine Negative (Negative); Specific Gravity,Urine 1.024 (1.001-1.035)
--- NOTE | 2021-03-21 20:50 | P.HPIM ---
History of Present Illness H&P Date: 03/21/21 The patient is a 55-year-old male with a PMH of alcoholic liver cirrhosis (quit 1 year ago), tobacco abuse, and chronic normocytic anemia, who presented to the ED after a fall. The patient notes that he was taking a shower when he suddenly lost his balance and fell inside the bathtub. The patient denied suffering any injuries and reported no pain after the fall. He denied losing consciousness. He also denied prodromal chest discomfort, shortness of breath, palpitations, or lightheadedness. He reports that he previously had a similar episode 3 years ago when he was found to have hepatic encephalopathy. He reported no pain at the time of interview and denied active complaints. He reports prior history of multiple paracentesis every 3 months but notes that he was told he no longer needed the paracentesis and he hasn't had one for 6 months to a year now. Denied abdominal pain, nausea, vomiting, diarrhea. Chest x-ray in the emergency room revealed no acute abnormalities. Brain CT revealed mild atrophy but otherwise no acute intracranial abnormalities. Laboratory evaluation was remarkable for ammonia level C, hemoglobin 7.7 down from previously 8.5 in 01/2018, platelets 67, potassium 5.2, BUN 30, creatinine 1.60, total bilirubin 3.7, and albumin 2.7. Review of Systems Pertinent positives and negatives as discussed in HPI, a complete review of sys tems was performed and all other systems are negative. Past Medical History Past Medical History: Sleep Apnea/CPAP/BIPAP, Supraventricular Tachycardia (SVT) Additional Past Medical History / Comment(s): neuropathy, liver failure. History of Any Multi-Drug Resistant Organisms: None Reported Past Surgical History: Hernia Repair Past Anesthesia/Blood Transfusion Reactions: No Reported Reaction Past Psychological History: No Psychological Hx Reported Past Alcohol Use History: None Reported, Daily Past Drug Use History: None Reported - Past Family History Father Additional Family Medical History / Comment(s): aortic valve replacement Mother Family Medical History: No Reported History Medications and Allergies Home Medications Medication Instructions Recorded Confirmed Type Lactulose 10 gm PO BID 02/23/18 03/21/21 History Propranolol HCl 10 mg PO TID 02/23/18 03/21/21 History Amitriptyline HCl [Elavil] 50 mg PO HS 03/21/21 03/21/21 History Metoprolol Succinate [Toprol XL] 25 mg PO DAILY 03/21/21 03/21/21 History Pantoprazole Sodium [Protonix] 40 mg PO DAILY 03/21/21 03/21/21 History Rifaximin [Xifaxan] 550 mg PO BID 03/21/21 03/21/21 History Allergies Allergy/AdvReac Type Severity Reaction Status Date / Time ciprofloxacin [From Cipro] Allergy Unknown Verified 03/21/21 19:25 gabapentin Allergy Unknown Verified 03/21/21 19:25 Quinolones Allergy Unknown Verified 03/21/21 19:25 tetanus and diphtheria Allergy Unknown Verified 03/21/21 19:25 toxoids [tetanus & diphtheria toxoids] Physical Exam Vitals: Vital Signs Temp Pulse Resp BP Pulse Ox 03/21/21 19:28 100 18 132/81 99 03/21/21 15:52 98.4 F 95 18 141/80 98 Intake and Output 03/21/21 03/21/21 03/21/21 06:59 14:59 22:59 Other: Weight 120.202 kg General: non toxic, no distress, appears older than stated age, morbidly obese Derm: Mild jaundice noted, no unusual rashes/lesions no unusual ecchymoses, warm, dry Head: atraumatic, normocephalic, symmetric Eyes: EOMI, no lid lag, scleral icterus noted, pupils equal round reactive to light ENT: Nose and ears atraumatic, no thrush, no pharyngeal erythema Neck: No thyromegaly, no cervical lymphadenopathy, trachea midline, supple Mouth: no lip lesion, mucus membranes moist Cardiovascular: S1S2 reg, no murmur, positive posterior tibial pulse bilateral, no edema, capillary refill less than 2 seconds Lungs: CTA bilateral, no rhonchi, no rales , no accessory muscle use Abdominal: soft, moderately distended, nontender to palpation, no guarding, normal bowel sounds Ext: no gross muscle atrophy, muscle strength 5 out of 5 in all 4 extremities grossly, no contractures, Neuro: CN II-XI grossly intact, light touch intact all 4 extremities, finger to nose within normal limits, asterixis noted Psych: Alert, oriented, appropriate affect Results CBC & Chem 7: 03/21/21 16:22 03/21/21 16:22 Labs: Abnormal Lab Results - Last 24 Hours (Table) 03/21/21 03/21/21 03/21/21 Range/Units 16:22 16:22 16:22 RBC 2.57 L (4.30-5.90) m/uL Hgb 7.7 L (13.0-17.5) gm/dL Hct 25.3 L (39.0-53.0) % MCHC 30.6 L (31.0-37.0) g/dL RDW 18.5 H (11.5-15.5) % Plt Count 67 L (150-450) k/uL Lymphocytes # 0.7 L (1.0-4.8) k/uL PT 13.1 H (9.0-12.0) sec INR 1.3 H (<1.2) Sodium 135 L (137-145) mmol/L Potassium 5.2 H (3.5-5.1) mmol/L BUN 30 H (9-20) mg/dL Creatinine 1.63 H (0.66-1.25) mg/dL Glucose 105 H (74-99) mg/dL Total Bilirubin 3.7 H (0.2-1.3) mg/dL Ammonia (<30) umol/L Total Protein 5.3 L (6.3-8.2) g/dL Albumin 2.7 L (3.5-5.0) g/dL 03/21/21 Range/Units 16:22 RBC (4.30-5.90) m/uL Hgb (13.0-17.5) gm/dL Hct (39.0-53.0) % MCHC (31.0-37.0) g/dL RDW (11.5-15.5) % Plt Count (150-450) k/uL Lymphocytes # (1.0-4.8) k/uL PT (9.0-12.0) sec INR (<1.2) Sodium (137-145) mmol/L Potassium (3.5-5.1) mmol/L BUN (9-20) mg/dL Creatinine (0.66-1.25) mg/dL Glucose (74-99) mg/dL Total Bilirubin (0.2-1.3) mg/dL Ammonia 100 H (<30) umol/L Total Protein (6.3-8.2) g/dL Albumin (3.5-5.0) g/dL Assessment and Plan Plan: Fall, possibly secondary to hepatic encephalopathy -Patient notes compliance with his lactulose at home at 10 g twice a day -Continue with increased dose of 20 mg 3 times a day for now -GI consult -Fall precautions -Cardiac monitoring for now JANET versus chronic kidney disease -Hold off on IV fluids due to history of cirrhosis and multiple paracenteses Hyperkalemia -Significant history of hyperkalemia in the past -Administer single dose of Kayexalate -EKG ordered Thrombocytopenia likely due to chronic liver disease -At baseline Normocytic anemia -Slightly worse from prior testing 3 years ago DVT prophylaxis -IPCDs The patient is admitted with an anticipated greater than 2 midnight stay for evaluation of hepatic encephalopathy CODE STATUS: Full Code Discussed with: Patient Anticipated discharge date: in am Anticipated discharge place: home A total of 40 minutes was spent on the care of this complex patient more than 50% of the time was spent in counseling and care coordination.
[2021-03-21] MEDS ORDERED: SODIUM POLYSTYRENE SULFONATE 15 GM/60 ML BOTTLE PO ONE (21:00)
[2021-03-21] MEDS: LACTULOSE 20 GM/30 ML CUP PO SCH (22:36)
[2021-03-21] MEDS: RIFAXIMIN 550 MG TABLET PO SCH (22:36)
[2021-03-21] MEDS: PROPRANOLOL 10 MG TAB PO SCH (22:36)
[2021-03-22] MEDS: METOPROLOL SUCCINATE (ER) 25 MG TAB.ER.24H PO SCH (07:38)
[2021-03-22] MEDS: LACTULOSE 20 GM/30 ML CUP PO SCH ×3 (07:38→17:27)
[2021-03-22] MEDS: RIFAXIMIN 550 MG TABLET PO SCH ×2 (07:39→22:22)
[2021-03-22] MEDS: PANTOPRAZOLE 40 MG TABLET PO SCH (07:39)
[2021-03-22] MEDS: PROPRANOLOL 10 MG TAB PO SCH ×3 (07:39→22:22)
--- NOTE | 2021-03-22 11:06 | P.CONS ---
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 The patient had a mechanical fall inside his past but denies losing consciousness. Patient was found to have an elevation of his ammonia level at 100 on presentation. Patient states he has a known history of decompensated liver cirrhosis secondary to alcohol abuse. He reports he had been drinking heavily his colitis but has been sober for the past year. The patient is followed up with [facility] hepatology service and reports that previously he was on the liver transplant list but is been removed due to improvement in his numbers. The patient has previously required paracentesis for ascites and states that the last time was approximately 6 months ago. He does believe that he is on diuretic therapy at home but is unsure of the medication and believes is possibly Aldactone. He is also treated for hepatic encephalopathy and states that his mathematics professor recently told him to increase the dosing of the lactulose, currently he is having approximately 2 bowel movements daily. He denies any signs or symptoms of GI bleeding. No fevers or chills. He states his last EGD was approximately 1 year ago and does not believe that he had variceal banding at that time. He states his last colonoscopy was approximately 3 years ago. Laboratory evaluation significant for WBC 5.5, hemoglobin 7.7 with normocytic indices, platelet count 67,000, INR 1.3, total bilirubin 3.7, pulse is 116, AST 59 and ALT 18. Review of Systems REVIEW OF SYSTEMS: CONSTITUTIONAL: Denies any fevers, chills, weight change or fatigue. CARDIOVASCULAR: Denies any chest pain, palpitations high or low blood pressures RESPIRATORY: Denies any shortness of breath, hemoptysis or cough. GENITOURINARY: No dysuria or hematuria. MUSCULOSKELETAL: No weakness reported. SKIN: Denies any new rashes or lesions, jaundice or pallor. PSYCHIATRIC: Denies any depression or anxiety. NEUROLOGY: Denies headache, denies any new focal deficits, mechanical fall. EARS/NOSE/THROAT: No recent hearing change, congestion, nasal discharge or sore throat. EYES: No pain in eyes, discharge or change in vision. GASTROINTESTINAL: As per HPI. Past Medical History Past Medical History: Sleep Apnea/CPAP/BIPAP, Supraventricular Tachycardia (SVT) Additional Past Medical History / Comment(s): neuropathy, liver failure. History of Any Multi-Drug Resistant Organisms: None Reported Past Surgical History: Hernia Repair Past Anesthesia/Blood Transfusion Reactions: No Reported Reaction Past Psychological History: No Psychological Hx Reported Smoking Status: Current every day smoker Past Alcohol Use History: None Reported, Daily Past Drug Use History: None Reported - Past Family History Father Additional Family Medical History / Comment(s): aortic valve replacement Mother Family Medical History: No Reported History Medications and Allergies Home Medications Medication Instructions Recorded Confirmed Type Lactulose 10 gm PO BID 02/23/18 03/21/21 History Propranolol HCl 10 mg PO TID 02/23/18 03/21/21 History Amitriptyline HCl [Elavil] 50 mg PO HS 03/21/21 03/21/21 History Metoprolol Succinate [Toprol XL] 25 mg PO DAILY 03/21/21 03/21/21 History Pantoprazole Sodium [Protonix] 40 mg PO DAILY 03/21/21 03/21/21 History Rifaximin [Xifaxan] 550 mg PO BID 03/21/21 03/21/21 History Allergies Allergy/AdvReac Type Severity Reaction Status Date / Time ciprofloxacin [From Cipro] Allergy Unknown Verified 03/21/21 19:25 gabapentin Allergy Unknown Verified 03/21/21 19:25 Quinolones Allergy Unknown Verified 03/21/21 19:25 tetanus and diphtheria Allergy Unknown Verified 03/21/21 19:25 toxoids [tetanus & diphtheria toxoids] Physical Exam Vitals: Vital Signs Temp Pulse Pulse Resp BP BP Pulse Ox 03/22/21 07:00 98.0 F 91 22 128/83 98 03/22/21 02:00 89 20 03/22/21 01:37 98.0 F 89 20 150/92 99 03/21/21 21:25 97.9 F 97 18 148/90 100 03/21/21 19:28 100 18 132/81 99 03/21/21 15:52 98.4 F 95 18 141/80 98 Intake and Output 03/21/21 03/22/21 03/22/21 22:59 06:59 14:59 Other: Voiding Method Toilet # Voids 0 Weight 120.202 kg On physical examination, patient appears comfortable in no apparent distress. HEAD: Normocephalic, atraumatic. EYES: No scleral icterus. No conjunctival injection. MOUTH: No lesions, tongue midline. NECK: Trachea midline, no gross abnormalities. CHEST: Clear to auscultation with no wheezing or rhonchi appreciated. HEART: Regular rate and rhythm. ABDOMEN: Soft, obese and nontender to palpation. Bowel sounds are positive. No organomegaly. No guarding or rigidity. EXTREMITIES: No pedal edema. SKIN: No rashes, no jaundice. NEUROLOGIC: Alert and oriented x3, no asterixis noted. No focal deficits. Results CBC & Chem 7: 03/21/21 16:22 03/21/21 16: Labs: Abnormal Lab Results - Last 24 Hours (Table) 03/21/21 03/21/21 03/21/21 Range/Units 16:22 16:22 16:22 RBC 2.57 L (4.30-5.90) m/uL Hgb 7.7 L (13.0-17.5) gm/dL Hct 25.3 L (39.0-53.0) % MCHC 30.6 L (31.0-37.0) g/dL RDW 18.5 H (11.5-15.5) % Plt Count 67 L (150-450) k/uL Lymphocytes # 0.7 L (1.0-4.8) k/uL PT 13.1 H (9.0-12.0) sec INR 1.3 H (<1.2) Sodium 135 L (137-145) mmol/L Potassium 5.2 H (3.5-5.1) mmol/L BUN 30 H (9-20) mg/dL Creatinine 1.63 H (0.66-1.25) mg/dL Glucose 105 H (74-99) mg/dL Total Bilirubin 3.7 H (0.2-1.3) mg/dL Ammonia (<30) umol/L Total Protein 5.3 L (6.3-8.2) g/dL Albumin 2.7 L (3.5-5.0) g/dL 03/21/21 Range/Units 16:22 RBC (4.30-5.90) m/uL Hgb (13.0-17.5) gm/dL Hct (39.0-53.0) % MCHC (31.0-37.0) g/dL RDW (11.5-15.5) % Plt Count (150-450) k/uL Lymphocytes # (1.0-4.8) k/uL PT (9.0-12.0) sec INR (<1.2) Sodium (137-145) mmol/L Potassium (3.5-5.1) mmol/L BUN (9-20) mg/dL Creatinine (0.66-1.25) mg/dL Glucose (74-99) mg/dL Total Bilirubin (0.2-1.3) mg/dL Ammonia 100 H (<30) umol/L Total Protein (6.3-8.2) g/dL Albumin (3.5-5.0) g/dL CT Scan - head: report reviewed (Mild atrophy noted on computed tomography scan of the head.) Assessment and Plan (1) Alcoholic cirrhosis of liver Narrative/Plan: 55-year-old male with a known history of decompensated alcohol cirrhosis of the liver. He reports sobriety from alcohol over the past year. She follows up with [facility] hepatology and has previously been on the liver transplant list but currently reports being taken off the list due to improvement clinically and in his laboratory numbers. He has a known history of ascites and has recently required paracentesis, as well as encephalopathy for which he takes lactulose and rifaximin at home. He does state that recently he was told to increase the dosing of the lactulose. Current Visit: No Status: Acute Code(s): K70.30 - ALCOHOLIC CIRRHOSIS OF LIVER WITHOUT ASCITES SNOMED Code(s): 664127316 (2) Normocytic anemia Narrative/Plan: No signs or symptoms of GI bleeding. Known history of chronic anemia. He states last EGD was approximately 1 year ago and normal per his recollection and last colonoscopy 3 years ago and normal per his recollection. Current Visit: Yes Status: Acute Code(s): D64.9 - ANEMIA, UNSPECIFIED SNOMED Code(s): 344154829 (3) Hepatic encephalopathy Current Visit: Yes Status: Acute Code(s): K72.90 - HEPATIC FAILURE, UNSPECIFIED WITHOUT COMA SNOMED Code(s): 79977720 (4) Tobacco abuse Current Visit: No Status: Acute Code(s): Z72.0 - TOBACCO USE SNOMED Code(s): 232040044 Plan: Supportive care Okay for sodium restricted diet Continue monitor CBC, BMP, LFTs Continue lactulose 3 times a day, titrate for 3-4 bowel movements daily Continue rifaximin therapy No plans for endoscopic evaluation at this time Patient will need follow up with [facility] pathology after discharge, he states that he has been following with Dr. Irving Patient should continue abstinence from alcohol Thank you for allowing us to participate in the care of the patient
[2021-03-22 11:28] LABS: African American GFR (CKD) 59.9 (60.0-200.0); Albumin 2.3 g/dL (3.80-4.90); Albumin/Globulin Ratio 1.35 (1.60-3.17); Anion Gap 4.7 mmol/L (4.00-12.00); Calcium 8.3 mg/dL (8.7-10.3); Carbon Dioxide 24.3 mmol/L (21.6-31.8); Globulin 1.7 g/dL (1.6-3.3); Non-African American GFR(CKD) 51.7 (60.0-200.0); Potassium 4.4 mmol/L (3.5-5.5); Total Bilirubin 3.4 mg/dL (0.3-1.2)
--- NOTE | 2021-03-22 17:51 | HP ---
HISTORY AND PHYSICAL DATE OF SERVICE: 03/22/2021 CHIEF COMPLAINT: Change in mental status. HISTORY OF PRESENT ILLNESS: This 55-year-old gentleman with a past medical history of multiple medical problems including sleep apnea, supraventricular tachycardia, history of peripheral neuropathy, liver failure, being followed by primary physician in the outpatient setting was admitted with change in mental status. The patient was admitted with features of hepatic encephalopathy. The serum ammonia was found to be elevated more than 100. The patient admitted for further evaluation and treatment. There is no history of any fever, rigors. No history of headache, loss of consciousness or seizures. Patient started on lactulose and repeat ammonia level is not available. PAST MEDICAL HISTORY: History of sleep apnea, supraventricular tachycardia, history of liver failure, history of nicotine dependence. MEDICATIONS: Prior to admission home medications are: Amitriptyline, Xifaxan, propranolol, Protonix, Toprol, lactulose. ALLERGIES: CIPRO, GABAPENTIN, QUINOLONES, TETANUS. FAMILY HISTORY: History of aortic valve replacement. SOCIAL HISTORY: History of smoking 2 beers a day according to him. REVIEW OF SYSTEMS: ENT: No diminished vision. No diminished hearing. CARDIOVASCULAR: No angina or palpitations. RESPIRATIONS: As mentioned earlier. GI: As mentioned earlier. no dysuria. NERVOUS SYSTEM: As mentioned earlier. ALLERGY/IMMUNOLOGY: No asthma or hayfever. MUSCULOSKELETAL: As mentioned earlier. HEMATOLOGY/ONCOLOGY: No history of anemia. ENDOCRINE: No history of diabetes or hypothyroidism. CONSTITUTIONAL: As mentioned earlier. DERMATOLOGY: Negative. RHEUMATOLOGY: Negative. PSYCHIATRY: As mentioned earlier. PHYSICAL EXAM: Alert and oriented x2. Pulse 84. Blood pressure 130/70. Respirations 18. Temperature 97.8, pulse ox 98% on room air. HEENT: Conjunctivae normal. NECK: No JVD. CARDIOVASCULAR: S1, S2 muffled. RESPIRATORY SYSTEM: Breath sounds diminished at the bases. A few scattered rhonchi and crackles. ABDOMEN: Soft, diffusely obese. Flanks are dull. No mass palpable. LEGS: No edema. No swelling. NERVOUS SYSTEM: Higher functions as mentioned earlier. Diffuse tremors and hepatic asterixis also present. SKIN: No ulcers, rashes or bleeding. JOINTS: No active deforming arthropathy. NERVOUS SYSTEM: Diffusely weak otherwise. LAB: WBC 5.5, hemoglobin 7.7. ASSESSMENT: 1. Change in mental status, acute hepatic encephalopathy. 2. Anemia, rule out chronic gastrointestinal blood loss. 3. Thrombocytopenia. 4. Mild coagulopathy secondary to chronic liver disease. 5. Hyponatremia. 6. Hyperkalemia. 7. Increased renal failure, acute renal failure. 8. Hyperammonemia. 9. Elevated bilirubin. 10.History of sleep apnea on CPAP. 11.History of supraventricular tachycardia. 12.History of peripheral neuropathy. 13.History of nicotine dependence. 14.NO CODE, NO CPR, NO VENT. RECOMMENDATIONS AND DISCUSSION: In this 55-year-old gentleman who presented with multiple complex medical issues, we will monitor the patient closely, continue the current medications, management and symptomatic treatment. We will start to increase the dose of lactulose. GI evaluation. Repeat labs. I would also recommend empiric antibiotics and also order ultrasound of the abdomen for evaluation of ascites also. Prognosis guarded because of multiple complex medical issues. Further recommendations to follow. AL / CANDIN: [id number] / MTDD
[2021-03-22 18:00] LABS: ALT 14 U/L (4-49); AST 43 U/L (17-59); African American GFR (CKD) 58 (>60 ml/min/1.73 sqM); Albumin/Globulin Ratio 0.9; Alkaline Phosphatase 78 U/L (38-126); Anion Gap 0 mmol/L; Blood Urea Nitrogen 26 mg/dL (9-20); Calcium 8.1 mg/dL (8.4-10.2); Carbon Dioxide 27 mmol/L (22-30); Chloride 108 mmol/L (98-107); Globulin 2.2 g/dL; Glucose 112 mg/dL (74-99); Non-African American GFR(CKD) 50 (>60 ml/min/1.73 sqM); Potassium 4.2 mmol/L (3.5-5.1); Sodium 135 mmol/L (137-145); Total Bilirubin 3.1 mg/dL (0.2-1.3); Total Protein 4.2 g/dL (6.3-8.2)
[2021-03-22 18:13] LABS: INR 1.4 (<1.2); Prothrombin Time 14.5 sec (9.0-12.0)
--- NOTE | 2021-03-22 20:15 | US ---
EXAMINATION TYPE: US abdomen complete DATE OF EXAM: 03/22/2021 COMPARISON: NONE CLINICAL HISTORY: ascites. Moderate ascites. IMPRESSION: There is abdominal ascites demonstrated in all 4 quadrants of the abdomen. Fluid measure s up to 6.5 cm in depth.
[2021-03-22] MEDS ORDERED: LACTULOSE 20 GM/30 ML CUP PO SCH (22:00)
[2021-03-23] MEDS: METOPROLOL SUCCINATE (ER) 25 MG TAB.ER.24H PO SCH (09:09)
[2021-03-23] MEDS: FOLIC ACID 1 MG TAB PO SCH (09:09)
[2021-03-23] MEDS: MULTIVITAMINS, THERA 1 EACH TAB PO SCH (09:09)
[2021-03-23] MEDS: PANTOPRAZOLE 40 MG TABLET PO SCH (09:09)
[2021-03-23] MEDS: LACTULOSE 20 GM/30 ML CUP PO SCH ×3 (09:09→20:54)
[2021-03-23] MEDS: THIAMINE 100 MG TAB PO SCH (09:09)
[2021-03-23] MEDS: RIFAXIMIN 550 MG TABLET PO SCH ×2 (09:10→20:54)
[2021-03-23] MEDS: PROPRANOLOL 10 MG TAB PO SCH ×3 (09:10→21:00)
--- NOTE | 2021-03-23 11:23 | P.PN ---
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 On presentation he was noted to have an ammonia level at 100. He has a history of heavy alcohol use, but reported that he has been sober for the past year. He has followed up with [facility] hepatology services and at one time had been on the liver transplant list. He does have a history of requiring paracentesis in the past. He states he follows with a doctor Maria Fernanda at [facility]. Today he appears confused, he is oriented to himself, he thinks he sat [facility] and does not know the year. He states he is very drowsy. He denies any abdominal pain, nausea, or vomiting. He denies any signs or symptoms of GI bleed. His ammonia level this morning is 163. Objective - Vital Signs Vital signs: Vital Signs Temp 98.2 F 03/23/21 07:00 Pulse 70 03/23/21 11:05 Resp 18 03/23/21 11:05 BP 111/65 03/23/21 11:05 Pulse Ox 98 03/23/21 11:05 Intake & Output 03/22/21 03/23/21 03/23/21 18:59 06:59 18:59 Output Total 100 Balance -100 Output: Urine 100 Other: # Voids 1 - Exam General appearance: The patient is alert, confused, disoriented, appears in no acute distress. HET: Head is normocephalic and atraumatic. Conjunctiva pink. Sclera icteric. Neck: Supple without lymphadenopathy. Abdomen: Soft, nontender, nondistended with bowel sounds. No guarding or rigidity. Extremities: Normal skin color and turgor. No pedal edema Skin: No rashes, jaundice Neurological: No focal deficits. Alert and oriented 1. - Labs CBC & Chem 7: 03/21/21 16:22 03/22/21 17:14 Labs: Abnormal Lab Results - Last 24 Hours (Table) 03/22/21 03/22/21 03/22/21 Range/Units 05:51 17:14 17:14 PT 14.5 H (9.0-12.0) sec INR 1.4 H (<1.2) Sodium 135 L (137-145) mmol/L Chloride 111 H 108 H (96-109) mmol/L BUN 30.0 H 26 H (9.0-27.0) mg/dL Creatinine 1.53 H (0.66-1.25) mg/dL Est GFR (CKD-EPI)AfAm 59.9 L (60.0-200.0) Est GFR (CKD-EPI)NonAf 51.7 L (60.0-200.0) Glucose 112 H (74-99) mg/dL Calcium 8.3 L 8.1 L (8.7-10.3) mg/dL Total Bilirubin 3.4 H 3.1 H (0.3-1.2) mg/dL AST 38 H (14-35) U/L Ammonia (<30) umol/L Total Protein 4.0 L 4.2 L (6.2-8.2) g/dL Albumin 2.30 L 2.0 L (3.80-4.90) g/dL Albumin/Globulin Ratio 1.35 L (1.60-3.17) g/dL 03/23/21 Range/Units 05:49 PT (9.0-12.0) sec INR (<1.2) Sodium (137-145) mmol/L Chloride (96-109) mmol/L BUN (9.0-27.0) mg/dL Creatinine (0.66-1.25) mg/dL Est GFR (CKD-EPI)AfAm (60.0-200.0) Est GFR (CKD-EPI)NonAf (60.0-200.0) Glucose (74-99) mg/dL Calcium (8.7-10.3) mg/dL Total Bilirubin (0.3-1.2) mg/dL AST (14-35) U/L Ammonia 163 H (<30) umol/L Total Protein (6.2-8.2) g/dL Albumin (3.80-4.90) g/dL Albumin/Globulin Ratio (1.60-3.17) g/dL Assessment and Plan (1) Alcoholic cirrhosis of liver Narrative/Plan: 55-year-old male with a known history of decompensated alcohol cirrhosis of the liver. He reports sobriety from alcohol over the past year. She follows up with [facility] hepatology and has previously been on the liver transplant list but currently reports being taken off the list due to improvement clinically and in his laboratory numbers. He has a known history of ascites and has recently required paracentesis, as well as encephalopathy for which he takes lactulose and rifaximin at home. He does state that recently he was told to increase the dosing of the lactulose. Current Visit: No Status: Acute Code(s): K70.30 - ALCOHOLIC CIRRHOSIS OF LIVER WITHOUT ASCITES SNOMED Code(s): 455691090 (2) Hepatic encephalopathy Current Visit: Yes Status: Acute Code(s): K72.90 - HEPATIC FAILURE, UNSPECIFIED WITHOUT COMA SNOMED Code(s): 56575768 (3) Normocytic anemia Narrative/Plan: No signs or symptoms of GI bleeding. He has a known history of chronic anemia. He states his last EGD was approximately one year ago and normal per his recollection and last colonoscopy 3 years ago and normal per his recollection. Current Visit: Yes Status: Acute Code(s): D64.9 - ANEMIA, UNSPECIFIED SNOMED Code(s): 670521808 Plan: 1. Continue symptomatic and supportive care 2. Daily CBC, CMP, ammonia level 3. Patient scheduled for paracentesis today 4. Increase lactulose to 30 g 3 times a day 5. Continue Xifaxan 6. No plans for endoscopic evaluation at this time 7. Patient will need close follow-up with [facility], 8. Continue abstinence from alcohol 9. Recommend smoking cessation Thank you for this consultation, we will continue to follow Dr. Daysi De Guzman I agree with the dictator's note, documented as a scribe by Eli Buck.
--- NOTE | 2021-03-23 12:44 | US ---
EXAMINATION TYPE: US paracentesis abd w/image DATE OF EXAM: 03/23/2021 COMPARISON: NONE HISTORY: Ascites. PROCEDURE: Maximal barrier technique was utilized. The skin overlying a suitable pocket of fluid was localized with ultrasound and the overlying skin was prepped and draped. Ultrasound was utilized with sterile technique. Lidocaine was used for local anesthesia and a skin dante made with a scalpel. Catheter was advanced under direct ultrasound guidance into a suitable pocket of fluid and approximately 5.6 liter s of serous fluid were removed. Catheter was withdrawn and hemostasis achieved. There is no immedia te complication; the patient is discharged in stable condition. IMPRESSION: STATUS POST ULTRASOUND GUIDED PARACENTESIS FOR PALLIATION OF ASCITES. THIS PROCEDURE WA S PERFORMED BY THE UNDERSIGNED.
[2021-03-23 14:42] LABS: Anisocytosis Slight; Basophils % (A) 1 %; Eosinophils # (A) 0.2 k/uL (0-0.7); Eosinophils % (A) 5 %; HCT 20.8 % (39.0-53.0); Hypochromasia Marked; Lymphocytes # (A) 0.8 k/uL (1.0-4.8); Lymphocytes % (A) 24 %; MCH 30.3 pg (25.0-35.0); MCHC 30.8 g/dL (31.0-37.0); MCV 98.2 fL (80.0-100.0); Macrocytosis Slight; Mean Platelet Volume 12.7; Monocytes # (A) 0.3 k/uL (0-1.0); Monocytes % (A) 8 %; Neutrophils % (A) 59 %; Poikilocytosis Slight; RBC 2.12 m/uL (4.30-5.90); RDW 18.4 % (11.5-15.5); WBC 3.4 k/uL (3.8-10.6)
[2021-03-23 15:03] VITALS: BMI 40.3
[2021-03-23 15:09] LABS: Appearance,BF Hazy; Color,BF Yellow; Nucleated Cells, Body Fluid 37 /uL; RBC, Body Fluid 343 /uL
[2021-03-23 15:23] LABS: HGB 6.4 gm/dL (13.0-17.5)
[2021-03-23 15:34] LABS: Mononuclear WBC,Body Fluid 93 %; Polynuclear WBC,Body Fluid 7 %; Total Cells Counted,Body Fluid 100
[2021-03-23 16:04] LABS: Platelet Count 45 k/uL (150-450)
[2021-03-23 16:06] LABS: Target Cells Present
[2021-03-23] MEDS ORDERED: Magnesium Replacement Protocol 1 EACH MISC MISCELLANE PRN (16:43)
[2021-03-23] MEDS ORDERED: Potassium Replacement Protocol 1 EACH MISC MISCELLANE PRN (16:43)
[2021-03-23 17:51] LABS: ALT 15 U/L (4-49); AST 45 U/L (17-59); African American GFR (CKD) 60 (>60 ml/min/1.73 sqM); Albumin 2.1 g/dL (3.5-5.0); Albumin/Globulin Ratio 0.9; Alkaline Phosphatase 85 U/L (38-126); Anion Gap 3 mmol/L; Blood Urea Nitrogen 26 mg/dL (9-20); Calcium 8.1 mg/dL (8.4-10.2); Carbon Dioxide 24 mmol/L (22-30); Chloride 109 mmol/L (98-107); Globulin 2.4 g/dL; Glucose 104 mg/dL (74-99); Non-African American GFR(CKD) 52 (>60 ml/min/1.73 sqM); Potassium 4.4 mmol/L (3.5-5.1); Sodium 136 mmol/L (137-145); Total Bilirubin 2.3 mg/dL (0.2-1.3); Total Protein 4.5 g/dL (6.3-8.2)
--- NOTE | 2021-03-23 17:53 | PN ---
PROGRESS NOTE DATE OF SERVICE: 03/23/2021 This 55-year-old gentleman who was admitted with change in mental status and acute metabolic encephalopathy also had acute hepatic encephalopathy. Patient had massive ascites; 5.3 liters of fluid was drained. Patient is on empiric antibiotics. Patient is on lactulose, also. Cytology is pending at this time. Past medical history reviewed. Ammonia is 163 today. Hemoglobin is 6.4. REVIEW OF SYSTEMS: CARDIOVASCULAR SYSTEM: No angina, palpitations. RESPIRATORY SYSTEM: As mentioned earlier. GI: As mentioned earlier. : No dysuria or retention. NERVOUS SYSTEM: As mentioned earlier. CURRENT MEDICATIONS: Reviewed. They include Rocephin, folic acid, Cephulac, Toprol-XL, multivitamins, Narcan, Protonix, Inderal, Xifaxan. PHYSICAL EXAMINATION: Patient is alert, oriented x2. Pulse is 65, blood pressure 109/72, respiration 18, temperature 97.9, pulse ox 100% on room air. HEENT: Conjunctivae icteric. NECK: No jugular venous distention. CARDIOVASCULAR SYSTEM: S1, S2 muffled. RESPIRATORY SYSTEM: Breath sounds diminished at the bases. ABDOMEN: Soft, obese. Ascites present. LEGS: Minimal edema. NERVOUS SYSTEM: Diffusely weak. Hepatic flap tremors present. SKIN: No ulcer, rash, bleeding. JOINTS: No active deforming arthropathy. LABS: WBC 3.4, hemoglobin 6.1. Other labs are noted, as mentioned earlier. ASSESSMENT: 1. Change in mental status, acute hepatic encephalopathy. 2. Anemia, acute on chronic gastrointestinal blood loss anemia. 3. Ascites, status post paracentesis of 5.3 L. 4. Thrombocytopenia. 5. Mild coagulopathy, possibly secondary to chronic liver disease. 6. Hyponatremia. 7. Hyperkalemia. 8. Acute renal failure with acute tubular necrosis, present on admission. 9. Hyperammonemia secondary to hepatic encephalopathy. 10.Elevated bilirubin. 11.History of sleep apnea, on CPAP. 12.History of supraventricular tachycardia. 13.History of peripheral neuropathy. 14.History of nicotine dependence. 15.FULL CODE. RECOMMENDATIONS AND DISCUSSION: I recommend to continue current medications, continue with the monitoring, symptomatic treatment. Continue current medications symptomatic treatment at this time. Will continue to monitor. Repeat labs will be ordered. Creatinine is slightly worsened today. Continue the antibiotics. Guarded prognosis because of multiple complex medical issues. Further recommendations to follow. Will check the ammonia, also. Lactulose until bowel movements to maintain at last 2 to 3 bowel movements. Otherwise, continue the rest of medications. Guarded prognosis. Further recommendations to follow. MMODL / IJN: [id number] /
[2021-03-23 18:47] LABS: Glucose, BF Source Ascites; Glucose, Body Fluid 123 mg/dL
[2021-03-24] MEDS: METOPROLOL SUCCINATE (ER) 25 MG TAB.ER.24H PO SCH (08:59)
[2021-03-24] MEDS: PANTOPRAZOLE 40 MG TABLET PO SCH (08:59)
[2021-03-24] MEDS: LACTULOSE 20 GM/30 ML CUP PO SCH ×3 (09:00→21:27)
[2021-03-24] MEDS: PROPRANOLOL 10 MG TAB PO SCH ×3 (09:00→21:27)
[2021-03-24] MEDS: RIFAXIMIN 550 MG TABLET PO SCH ×2 (09:00→19:48)
[2021-03-24 11:17] LABS: African American GFR (CKD) 71.2 (60.0-200.0); Albumin 2.4 g/dL (3.80-4.90); Albumin/Globulin Ratio 1.33 (1.60-3.17); Anion Gap 4.3 mmol/L (4.00-12.00); BUN/Creat Ratio 18.46 Ratio (12.00-20.00); Calcium 8.2 mg/dL (8.7-10.3); Carbon Dioxide 26.7 mmol/L (21.6-31.8); Globulin 1.8 g/dL (1.6-3.3); Magnesium 1.5 mg/dL (1.5-2.4); Non-African American GFR(CKD) 61.4 (60.0-200.0); Potassium 4.8 mmol/L (3.5-5.5); Total Bilirubin 10.6 mg/dL (0.2-1.2); Total Protein 4.2 g/dL (6.2-8.2)
[2021-03-24 11:19] LABS: Basophils # (A) 0.04 X 10*3/uL (0.00-0.10); Basophils % (A) 0.5 %; Eosinophils # (A) 0.32 X 10*3/uL (0.04-0.35); Eosinophils % (A) 4.3 %; HCT 23.7 % (39.6-50.0); HGB 7.5 g/dL (13.0-17.0); Lymphocytes # (A) 0.64 X 10*3/uL (0.90-5.00); Lymphocytes % (A) 8.5 %; MCH 30.5 pg (27.0-32.0); MCHC 31.6 g/dL (32.0-37.0); MCV 96.3 fL (80.0-97.0); Monocytes % (A) 10.7 %; Neutrophils # (A) 5.68 X 10*3/uL (1.80-7.70); Neutrophils % (A) 75.6 %; RBC 2.46 X 10*6/uL (4.40-5.60); RDW 18.4 % (11.5-14.5); WBC 7.51 X 10*3/uL (4.50-10.00)
[2021-03-24] MEDS: THIAMINE 100 MG TAB PO SCH (11:22)
[2021-03-24] MEDS: FOLIC ACID 1 MG TAB PO SCH (11:22)
[2021-03-24] MEDS: MULTIVITAMINS, THERA 1 EACH TAB PO SCH (11:22)
[2021-03-24 12:02] LABS: Platelet Count 52 k/uL (150-450)
--- NOTE | 2021-03-24 12:39 | P.PN ---
Subjective Progress Note Date: 03/24/21 Principal diagnosis: Cirrhosis This is a 55-year-old male patient with a history of decompensated alcoholic cirrhosis of the liver with ascites and encephalopathy who presented to the hospital due to a mechanical fall. On presentation he was noted to have an ammonia level at 100. He has a history of heavy alcohol use, but reported that he has been sober for the past year. He has followed up with [facility] hepatology services and at one time had been on the liver transplant list. He does have a history of requiring paracentesis in the past. He states he follows with a doctor Maria Fernanda at [facility]. The patient is seen and examined lying in bed sleeping, he is easily arousable and is alert and oriented 1 patient is mumbling his words and is difficult to understand. His ammonia level has dropped to 33 today from 163 yesterday. He had a drop in his hemoglobin yesterday to 6.4 and is status post 1 unit of PRBC transfusion. Repeat hemoglobin 7.5. Patient denies any sinus symptoms of GI bleed. He is also status post paracentesis yesterday with 5.6 L of fluid removal. Objective - Vital Signs Vital signs: Vital Signs Temp 99.2 F 03/24/21 08:00 Pulse 92 03/24/21 08:00 Resp 18 03/24/21 08:00 BP 118/80 03/24/21 08:00 Pulse Ox 93 L 03/24/21 08:00 Intake & Output 03/23/21 03/24/21 03/24/21 18:59 06:59 18:59 Intake Total 310 220 Balance 310 220 Weight 120.202 kg Intake: Oral 220 Blood Product 310 Rc As-1 Unit 310 [id number] Other: Voiding Method Urinal Toilet Toilet Urinal Urinal # Voids 1 1 1 # Bowel Movements 1 1 - Exam General appearance: The patient is alert, confused, disoriented, appears in no acute distress. HET: Head is normocephalic and atraumatic. Conjunctiva pink. Sclera icteric. Neck: Supple without lymphadenopathy. Abdomen: Soft, nontender, distended, normal bowel sounds. No guarding or rigidity. Extremities: Normal skin color and turgor. No pedal edema Skin: No rashes, jaundice Neurological: No focal deficits. Alert and oriented 1. - Labs CBC & Chem 7: 03/24/21 06:20 03/24/21 06:20 Labs: Abnormal Lab Results - Last 24 Hours (Table) 03/23/21 03/23/21 03/23/21 Range/Units 14:05 16:00 16:00 WBC 3.4 L (3.8-10.6) k/uL RBC 2.12 L (4.30-5.90) m/uL Hgb 6.4 L* (13.0-17.5) gm/dL Hct 20.8 L (39.0-53.0) % MCHC 30.8 L (31.0-37.0) g/dL RDW 18.4 H (11.5-15.5) % Plt Count 45 L (150-450) k/uL Lymphocytes # 0.8 L (1.0-4.8) k/uL Sodium 136 L (137-145) mmol/L Chloride 109 H (98-107) mmol/L BUN 26 H (9-20) mg/dL Creatinine 1.49 H (0.66-1.25) mg/dL Glucose 104 H (74-99) mg/dL Calcium 8.1 L (8.4-10.2) mg/dL Total Bilirubin 2.3 H (0.2-1.3) mg/dL Ammonia (<30) umol/L Total Protein 4.5 L (6.3-8.2) g/dL Albumin 2.1 L (3.5-5.0) g/dL Crossmatch See Detail 03/24/21 Range/Units 06:20 WBC (3.8-10.6) k/uL RBC (4.30-5.90) m/uL Hgb (13.0-17.5) gm/dL Hct (39.0-53.0) % MCHC (31.0-37.0) g/dL RDW (11.5-15.5) % Plt Count (150-450) k/uL Lymphocytes # (1.0-4.8) k/uL Sodium (137-145) mmol/L Chloride (98-107) mmol/L BUN (9-20) mg/dL Creatinine (0.66-1.25) mg/dL Glucose (74-99) mg/dL Calcium (8.4-10.2) mg/dL Total Bilirubin (0.2-1.3) mg/dL Ammonia 33 H (<30) umol/L Total Protein (6.3-8.2) g/dL Albumin (3.5-5.0) g/dL Crossmatch Microbiology - Last 24 Hours (Table) 03/23/21 10:45 Gram Stain - Preliminary Ascites Fluid Body Fluid Culture - Preliminary 03/23/21 10:45 Anaerobic Culture - Preliminary Ascites Fluid Assessment and Plan (1) Alcoholic cirrhosis of liver Narrative/Plan: 55-year-old male with a known history of decompensated alcohol cirrhosis of the liver. He reports sobriety from alcohol over the past year. She follows up with [facility] hepatology and has previously been on the liver transplant list but currently reports being taken off the list due to i mprovement clinically and in his laboratory numbers. He has a known history of ascites and has recently required paracentesis, as well as encephalopathy for which he takes lactulose and rifaximin at home. He does state that recently he was told to increase the dosing of the lactulose. Current Visit: No Status: Acute Code(s): K70.30 - ALCOHOLIC CIRRHOSIS OF LIVER WITHOUT ASCITES SNOMED Code(s): 659101906 (2) Hepatic encephalopathy Narrative/Plan: Lactulose increased to 30 g 3 times a day, ammonia level improved today 33 down from 163 Current Visit: Yes Status: Acute Code(s): K72.90 - HEPATIC FAILURE, UNSPECIFIED WITHOUT COMA SNOMED Code(s): 09208630 (3) Normocytic anemia Narrative/Plan: No signs or symptoms of GI bleeding. He has a known history of chronic anemia. He states his last EGD was approximately one year ago and normal per his recollection and last colonoscopy 3 years ago and normal per his recollection. Current Visit: Yes Status: Acute Code(s): D64.9 - ANEMIA, UNSPECIFIED SNOM ED Code(s): 802216182 Plan: 1. Continue symptomatic and supportive care 2. Daily CBC, CMP, ammonia level 3. Patient status post paracentesis with 5.6 L removed 4. Cotninue lactulose to 30 g 3 times a day, titrate to have 3-4 BM daily 5. Continue Xifaxan 6. No plans for endoscopic evaluation at this time 7. Patient will need close follow-up with [facility], 8. Continue abstinence from alcohol 9. Recommend smoking cessation Thank you for this consultation, we will continue to follow Dr. Daysi De Guzman I agree with the dictator's note, documented as a scribe by Eli Buck.
--- NOTE | 2021-03-24 15:44 | PN ---
PROGRESS NOTE DATE OF SERVICE: 03/24/2021 This 55-year-old gentleman admitted with acute hepatic encephalopathy is improving significantly, and apparently this morning the patient was more alert, but currently the patient is slightly drowsy after sleeping, according to the staff. The patient also had abdominal paracentesis of 5.3 L. Patient is on broad-spectrum empiric antibiotics and Gastroenterology is following the patient. No chest pain. No palpitations. No fever. PHYSICAL EXAMINATION: Pulse 92, blood pressure 118/80, respiration 18, temperature 99.2, pulse ox 93% on room air. The patient HEENT: Conjunctivae normal. NECK: No jugular venous distention. CARDIOVASCULAR SYSTEM: S1, S2 muffled. RESPIRATORY SYSTEM: Breath sounds diminished at the bases. A few scattered rhonchi. ABDOMEN: Soft, obese, non-tender. Ascites present. LEGS: No edema. No swelling. NERVOUS SYSTEM: No focal deficit. LABS: WBC 7.5, hemoglobin 7.5 and platelets of 52. Other labs are noted. Serum ammonia is 33 from today. ASSESSMENT: 1. Change in mental status, acute hepatic encephalopathy. 2. Anemia, possibly acute on chronic gastrointestinal blood loss, possibly from variceal bleeding. 3. Ascites, status post paracentesis of 5.3 liters. 4. Thrombocytopenia. 5. Mild coagulopathy, possibly secondary to chronic liver disease. 6. Hyponatremia. 7. Hyperkalemia. 8. Acute renal failure with acute tubular necrosis, present on admission. 9. Hyperammonemia secondary to hepatic encephalopathy. 10.Elevated bilirubin. 11.History of sleep apnea, on CPAP. 12.History of supraventricular tachycardia. 13.History of peripheral neuropathy. 14.History of nicotine dependence. 15.FULL CODE. RECOMMENDATIONS AND DISCUSSION: I recommend to continue current medications, continue with the monitoring, symptomatic treatment. Continue with the Lasix. Adjust the dose of Lasix to have at least 2 to 3 bowel movements per day. antibiotics. Monitor hemoglobin closely. Repeat labs will be ordered for tomorrow. Closely follow with Gastroenterology. Prognosis guarded because of the above-mentioned multiple complex medical issues. Further recommendations to follow. MMODL / IJN: [id number] /
[2021-03-25 02:53] VITALS: RESP 16
[2021-03-25] MEDS: LACTULOSE 20 GM/30 ML CUP PO SCH (08:50)
[2021-03-25] MEDS: PROPRANOLOL 10 MG TAB PO SCH (08:51)
[2021-03-25] MEDS: METOPROLOL SUCCINATE (ER) 25 MG TAB.ER.24H PO SCH (08:51)
[2021-03-25] MEDS: PANTOPRAZOLE 40 MG TABLET PO SCH (08:51)
[2021-03-25] MEDS: RIFAXIMIN 550 MG TABLET PO SCH (08:52)
[2021-03-25 10:05] LABS: Albumin 2.2 g/dL (3.80-4.90); Albumin/Globulin Ratio 1.47 (1.60-3.17); Bilirubin,Unconjugated 1.4 mg/dL; Globulin 1.5 g/dL (1.6-3.3); Total Bilirubin 3.4 mg/dL (0.3-1.2); Total Protein 3.7 g/dL (6.2-8.2)
[2021-03-25] MEDS: FOLIC ACID 1 MG TAB PO SCH (11:27)
[2021-03-25] MEDS: THIAMINE 100 MG TAB PO SCH (11:27)
[2021-03-25] MEDS: MULTIVITAMINS, THERA 1 EACH TAB PO SCH (11:27)
--- NOTE | 2021-03-25 12:51 | P.DS ---
Providers Date of admission: 03/21/21 20:29 Expected date of discharge: 03/25/21 Attending physician: Manuel Meyers Consults: 03/21/21 20:51 Consult Physician Urgent Consulting Provider: Di De Guzman Consult Reason/Comments: Cirrhosis Do you want consulting provider notified?: Yes Primary care physician: Cherry Ortiz [facility] Course: Final diagnosis Change in mental status, acute hepatic encephalopathy Anemia, possibly acute on chronic gastrointestinal blood loss, possibly from variceal bleeding Ascites, status post paracentesis of 5.3 L Thrombocytopenia Mild coagulopathy, possibly secondary to chronic liver disease Hyponatremia hyperkalemia Acute renal failure with acute tubular necrosis, present on admission Hyperammonemia secondary to hepatic encephalopathy Sleep apnea history uses CPAP Elevated bilirubin Full code Discharge disposition Patient is being discharged in stable condition with guarded prognosis to home. Patient will follow-up with Dr. Cherry Alanis in the outpatient setting upon discharge. Patient also instructed to follow-up with GI and his software engineering supervisor out of [facility]. Patient instructed to continue with lactulose and current medications. Prescription provided to monitor labs in the outpatient setting. Total time taken is greater than 35 minutes. Hospital course This is a 55-year-old male who was recently admitted with acute hepatic encephalopathy and was being closely monitored. Mentation is much improved and patient is alert and oriented 3. GI following and patient underwent paracentesis of approximately 5.3 L removal. During hospitalization patient's hemoglobin was found to be low requiring a unit of PRBC. Patient provided prescriptions to monitor hemoglobin along with electrolytes and kidney functions in the outpatient setting. Patient does follow with hepatology at [facility] and instructed to continue to follow. Patient also instructed to follow-up with GI in the outpatient setting. Instructed the patient to continue with lactulose 3 times daily and continue to avoid alcohol intake. Currently no reports of chest pain, shortness of breath, or palpitations. Patient is afebrile. No reports of nausea or vomiting and patient is tolerating diet. Patient will be discharged to home today. On exam vital signs are stable. Cardio S1, S2 are muffled. Respiratory shows diminished breath sounds at the bases with no wheezing or rhonchi noted. Abdomen is soft and nontender. Nervous system shows no focal deficits. Please refer to medication reconciliation sheet for a list of medications Patient Condition at Discharge: Fair Plan - Discharge Summary Discharge Rx Participant: Yes New Discharge Prescriptions: New Lactulose [Cephulac] 20 gm PO TID 30 Days #2700 ml Thiamine [Vitamin B-1] 100 mg PO DAILY@1200 30 Days #30 tab Folic Acid 1 mg PO DAILY@1200 30 Days #30 tab Multivitamins, Thera [Multivitamin (formulary)] 1 each PO DAILY@1200 30 Days #30 tab Continue Propranolol HCl 10 mg PO TID Pantoprazole Sodium [Protonix] 40 mg PO DAILY Rifaximin [Xifaxan] 550 mg PO BID Metoprolol Succinate [Toprol XL] 25 mg PO DAILY Discontinued Lactulose 10 gm PO BID Amitriptyline HCl [Elavil] 50 mg PO HS Discharge Medication List Propranolol HCl 10 mg PO TID 02/23/18 [History] Metoprolol Succinate [Toprol XL] 25 mg PO DAILY 03/21/21 [History] Pantoprazole Sodium [Protonix] 40 mg PO DAILY 03/21/21 [History] Rifaximin [Xifaxan] 550 mg PO BID 03/21/21 [History] Folic Acid 1 mg PO DAILY@1200 30 Days #30 tab 03/25/21 [Rx] Lactulose [Cephulac] 20 gm PO TID 30 Days #2700 ml 03/25/21 [Rx] Multivitamins, Thera [Multivitamin (formulary)] 1 each PO DAILY@1200 30 Days #30 tab 03/25/21 [Rx] Thiamine [Vitamin B-1] 100 mg PO DAILY@1200 30 Days #30 tab 03/25/21 [Rx] Follow up Appointment(s)/Referral(s): Cherry Ortiz MD [Primary Care Provider] - 1-2 days (Please call the office to schedule your appointment ) [facility], [NON-STAFF] - 1-2 Days Gala Bagley NPC [Nurse Practitioner] - 04/01/21 11:00 am Ambulatory/Diagnostic Orders: Complete Blood Count w/diff [LAB.AMB] Time Frame: 3 Days, Location: None Selected Activity/Diet/Wound Care/Special Instructions: Activity Limited until follow-up Follow up with primary care provider Follow-up with GI in the outpatient setting Follow-up with software engineering supervisor from [employer] as scheduled Repeat labs in 2-3 days Continue with lactulose 3 times daily to maintain 3-4 bowel movements daily Continue current medications Discharge Disposition: HOME WITH HOME HEALTH SERVICES
[2021-03-25 12:53] LABS: Basophils # (A) 0.03 X 10*3/uL (0.00-0.10); Basophils % (A) 0.9 %; Eosinophils % (A) 5.8 %; HCT 20.8 % (39.6-50.0); HGB 6.4 g/dL (13.0-17.0); Lymphocytes % (A) 14.5 %; MCH 29.2 pg (27.0-32.0); MCHC 30.8 g/dL (32.0-37.0); Mean Platelet Volume 13.1 fL (9.5-12.2); Monocytes # (A) 0.41 X 10*3/uL (0.20-1.00); Monocytes % (A) 11.8 %; Neutrophils % (A) 66.4 %; RBC 2.19 X 10*6/uL (4.40-5.60); RDW 18.3 % (11.5-14.5); WBC 3.46 X 10*3/uL (4.50-10.00)
[2021-03-25 15:29] VITALS: BP 129/82; PULSE 76; TEMP 97.9
--- NOTE | 2021-03-25 15:44 | P.PN ---
Subjective Progress Note Date: 03/25/21 Principal diagnosis: Cirrhosis This is a 55-year-old male patient with a history of decompensated alcoholic cirrhosis of the liver with ascites and encephalopathy who presented to the hospital due to a mechanical fall. On presentation he was noted to have an ammonia level at 100. He has a history of heavy alcohol use, but reported that he has been sober for the past year. He has followed up with [facility] hepatology services and at one time had been on the liver transplant list. He does have a history of requiring paracentesis in the past. He states he follows with a doctor Maria Fernanda at [facility]. The patient is seen and examined lying up in bed. He is alert and oriented 3. He has been having 3-4 bowel movements daily. He denies any signs or symptoms of GI bleed, nausea, vomiting, or abdominal pain. He is status post paracentesis of 5.6 L of fluid removed. States his abdomen feels less distended. He states he sees Dr. Irving and [facility], last seen 2 months ago. He was previously on the liver transplant list however states his meld score improved and they took him off the list. He states the last time he had to have a paracentesis was approximately 8 months ago. He states he has not had any alcohol to drink for at least 6 months. Plan is for discharge home today after he had a drop in his hemoglobin is 6.4. When order PRBC transfusion as ordered. He will be discharged home after transfuse. Objective - Vital Signs Vital signs: Vital Signs Temp 98.6 F 03/25/21 08:03 Pulse 75 03/25/21 08:03 Resp 16 03/25/21 08:03 BP 125/72 03/25/21 08:03 Pulse Ox 100 03/25/21 08:03 Intake & Output 03/24/21 03/25/21 03/25/21 18:59 06:59 18:59 Intake Total 220 Output Total 1 Balance 220 -1 Intake: Oral 220 Output: Stool 1 Other: Voiding Method Toilet Toilet Toilet Urinal Urinal Urinal Diaper Diaper # Voids 1 1 1 # Bowel Movements 2 1 - Exam General appearance: The patient is alert, orientated, appears in no acute distress. HET: Head is normocephalic and atraumatic. Conjunctiva pink. Sclera icteric. Neck: Supple without lymphadenopathy. Abdomen: Soft, nontender, distended, normal bowel sounds. No guarding or rigidity. Extremities: Normal skin color and turgor. No pedal edema Skin: No rashes, jaundice Neurological: No focal deficits. Alert and oriented 3. - Labs CBC & Chem 7: 03/25/21 05:10 03/24/21 06:20 Labs: Abnormal Lab Results - Last 24 Hours (Table) 03/24/21 03/24/21 03/24/21 Range/Units 06:20 06:20 06:20 RBC 2.46 L (4.40-5.60) X 10*6/uL Hgb 7.5 L (13.0-17.0) g/dL Hct 23.7 L (39.6-50.0) % MCHC 31.6 L (32.0-37.0) g/dL RDW 18.4 H (11.5-14.5) % Plt Count 52 L (150-450) k/uL Plt Count Comment DECREASED A Lymphocytes # 0.64 L (0.90-5.00) X 10*3/uL Immature Plt Fraction 13.5 H (1.1-6.1) % Glucose 112 H (70-110) mg/dL Calcium 8.2 L (8.7-10.3) mg/dL Total Bilirubin 10.6 H (0.2-1.2) mg/dL Conjugated Bilirubin (0.20-0.40) mg/dL AST 50 H (14-35) U/L Total Protein 4.2 L (6.2-8.2) g/dL Albumin 2.40 L (3.80-4.90) g/dL Globulin (1.6-3.3) g/dL Albumin/Globulin Ratio 1.33 L (1.60-3.17) g/dL 03/25/21 Range/Units 05:10 RBC (4.40-5.60) X 10*6/uL Hgb (13.0-17.0) g/dL Hct (39.6-50.0) % MCHC (32.0-37.0) g/dL RDW (11.5-14.5) % Plt Count (150-450) k/uL Plt Count Comment Lymphocytes # (0.90-5.00) X 10*3/uL Immature Plt Fraction (1.1-6.1) % Glucose (70-110) mg/dL Calcium (8.7-10.3) mg/dL Total Bilirubin 3.4 H (0.2-1.2) mg/dL Conjugated Bilirubin 2.00 H (0.20-0.40) mg/dL AST 60 H (14-35) U/L Total Protein 3.7 L (6.2-8.2) g/dL Albumin 2.20 L (3.80-4.90) g/dL Globulin 1.5 L (1.6-3.3) g/dL Albumin/Globulin Ratio 1.47 L (1.60-3.17) g/dL Microbiology - Last 24 Hours (Table) 03/23/21 10:45 Gram Stain - Preliminary Ascites Fluid Body Fluid Culture - Preliminary Assessment and Plan (1) Alcoholic cirrhosis of liver Narrative/Plan: 55-year-old male with a known history of decompensated alcohol cirrhosis of the liver. He reports sobriety from alcohol over the past year. She follows up w [facility] hepatology and has previously been on the liver transplant list but currently reports being taken off the list due to improvement clinically and in his laboratory numbers. He has a known history of ascites and has recently required paracentesis, as well as encephalopathy for which he takes lactulose and rifaximin at home. He does state that recently he was told to increase the dosing of the lactulose. Patient to follow-up with [facility] Dr. Irving for continued management of cirrhosis of the liver. Patient verbalizes understanding for follow-up and also will follow-up with our office for outpatient paracentesis as needed. Current Visit: No Status: Acute Code(s): K70.30 - ALCOHOLIC CIRRHOSIS OF LIVER WITHOUT ASCITES SNOMED Code(s): 742444057 (2) Hepatic encephalopathy Narrative/Plan: Lactulose increased to 30 g 3 times a day, ammonia level improved today 33 down from 163. Panic encephalopathy resolved, patient is alert and oriented 3. Will need to continue lactulose 30 g 3 times a day. Current Visit: Yes Status: Acute Code(s): K72.90 - HEPATIC FAILURE, UNSPECIFIED WITHOUT COMA SNOMED Code(s): 42108934 (3) Normocytic anemia Narrative/Plan: No signs or symptoms of GI bleeding. He has a known history of chronic anemia. He states his last EGD was approximately one year ago and normal per his recollection and last colonoscopy 3 years ago and normal per his recollection. Current Visit: Yes Status: Acute Code(s): D64.9 - ANEMIA, UNSPECIFIED SNOM ED Code(s): 317135242 Plan: 1. Continue symptomatic and supportive care 2. Patient status post paracentesis with 5.6 L removed 3. Cotninue lactulose to 30 g 3 times a day, titrate to have 3-4 BM daily 4. Continue Xifaxan 5. No plans for endoscopic evaluation at this time 6. Patient will need close follow-up with [facility], as we ll as gastroenterology 7. Continue abstinence from alcohol 8. Recommend smoking cessation May be discharged home from a gastroenterology standpoint once finished with transfusion, patient to follow-up with Dr. Irving as well as Dr. De Guzman Thank you for this consultation, we will continue to follow Dr. Daysi De Guzman I agree with the dictator's note, documented as a scribe by Eli Buck.
== END 2021-03-25 17:01 | disposition home health service (06) | DRG 432 ==
LOC: EC 15:36 → 6NMEDSUR 20:29
PROVIDERS: ADMIT Hospitalist; ATTEND Hospitalist
PROC: 0W9G3ZZ Drainage of Peritoneal Cavity, Percutaneous Approach (ICD-10-PCS; principal; 2021-03-23)
PROC: 30233N1 Transfusion of Nonautologous Red Blood Cells into Peripheral Vein, Percutaneous Approach (ICD-10-PCS; 2021-03-23)
DX: K70.40 Alcoholic hepatic failure without coma (principal); N17.0 Acute kidney failure with tubular necrosis; G93.41 Metabolic encephalopathy; I85.11 Secondary esophageal varices with bleeding; D68.4 Acquired coagulation factor deficiency; E87.1 Hypo-osmolality and hyponatremia; Z68.41 Body mass index [BMI] 40.0-44.9, adult; K70.31 Alcoholic cirrhosis of liver with ascites; F10.21 Alcohol dependence, in remission; D50.0 Iron deficiency anemia secondary to blood loss (chronic); E66.01 Morbid (severe) obesity due to excess calories; Z20.822 Contact with and (suspected) exposure to COVID-19; D69.59 Other secondary thrombocytopenia; E87.5 Hyperkalemia; G62.9 Polyneuropathy, unspecified; G47.30 Sleep apnea, unspecified; F17.210 Nicotine dependence, cigarettes, uncomplicated; Z71.6 Tobacco abuse counseling; Z79.899 Other long term (current) drug therapy; Z86.79 Personal history of other diseases of the circulatory system; Z87.19 Personal history of other diseases of the digestive system; Z87.01 Personal history of pneumonia (recurrent); Z98.890 Other specified postprocedural states; Z88.1 Allergy status to other antibiotic agents; Z88.7 Allergy status to serum and vaccine; Z88.8 Allergy status to other drugs, medicaments and biological substances; W18.2XXA Fall in (into) shower or empty bathtub, initial encounter; Y93.E1 Activity, personal bathing and showering; Z71.3 Dietary counseling and surveillance; Y92.002 Bathroom of unspecified non-institutional (private) residence as the place of occurrence of the external cause; Z82.49 Family history of ischemic heart disease and other diseases of the circulatory system
CPT/HCPCS: 36415; 49083; 70450; 71046; 76705; 80053; 80076; 81003; 82140; 82945; 83735; 85025; 85049; 85610; 85730; 86850; 86900; 86901; 86920; 87070; 87075; 87205; 87635; 88108; 88305; 89050; 93005; 99285

== ENCOUNTER 2021-05-02 20:11 | Inpatient (IN) | payer OTHER ==
--- NOTE | 2021-05-02 22:21 | ED ---
SOB HPI - General Chief Complaint: Shortness of Breath Stated Complaint: water retention & Male Time Seen by Provider: 05/02/21 22:01 Source: patient, RN notes reviewed, old records reviewed Mode of arrival: wheelchair Limitations: no limitations - History of Present Illness Initial Comments: This is a 36-year-old male DF for evaluation patient coming in for weakness shortness of breath abdominal pain with history of ascites not feeling well. No travel history sick contacts no fevers. Mild nausea. Began history of ascites states he needs of this paracentesis at the swelling is significantly worse than normal patient heart from the catch his breath. No fevers. MD Complaint: shortness of breath, anxiety -: days(s) Severity: moderate Severity scale (1-10): 7 Consistency: constant Improves With: nothing Known History Of: other (Ascites) Context: anxiety, recent illness Associated Symptoms: pain with inspiration, cough, nausea/vomiting, abdominal pain Treatments Prior to Arrival: none - Related Data Home Medications Medication Instructions Recorded Confirmed Propranolol HCl 10 mg PO TID 02/23/18 05/03/21 Metoprolol Succinate [Toprol XL] 25 mg PO DAILY 03/21/21 05/03/21 Pantoprazole Sodium [Protonix] 40 mg PO DAILY 03/21/21 05/03/21 Rifaximin [Xifaxan] 550 mg PO BID 03/21/21 05/03/21 Albuterol Sulfate [Ventolin HFA] 1 - 2 puff INHALATION RT-Q6H PRN 05/03/21 05/03/21 Amitriptyline HCl [Elavil] 50 mg PO HS 05/03/21 05/03/21 Doxycycline Hyclate [Vibramycin] 100 mg PO BID 05/03/21 05/03/21 Lactulose [Cephulac] 20 gm PO QID 05/03/21 05/03/21 Multivitamins, Thera [Multivitamin 1 tab PO DAILY@1200 05/03/21 05/03/21 (formulary)] Previous Rx's Medication Instructions Recorded Folic Acid 1 mg PO DAILY@1200 30 Days #30 tab 03/25/21 Thiamine [Vitamin B-1] 100 mg PO DAILY@1200 30 Days #30 03/25/21 tab Furosemide [Lasix] 40 mg PO BID 30 Days #60 tablet 05/04/21 Spironolactone [Aldactone] 50 mg PO BID 30 Days #60 tab 05/04/21 Allergies Allergy/AdvReac Type Severity Reaction Status Date / Time ciprofloxacin [From Cipro] Allergy Unknown Verified 05/03/21 10:33 gabapentin Allergy Unknown Verified 05/03/21 10:33 Quinolones Allergy Unknown Verified 05/03/21 10:33 tetanus and diphtheria Allergy Unknown Verified 05/03/21 10:33 toxoids [tetanus & diphtheria toxoids] Review of Systems ROS Statement: Those systems with pertinent positive or pertinent negative responses have been documented in the HPI. ROS Other: All systems not noted in ROS Statement are negative. Past Medical History Past Medical History: Sleep Apnea/CPAP/BIPAP, Supraventricular Tachycardia (SVT) Additional Past Medical History / Comment(s): neuropathy, liver failure. History of Any Multi-Drug Resistant Organisms: None Reported Past Surgical History: Hernia Repair Past Anesthesia/Blood Transfusion Reactions: No Reported Reaction Past Psychological History: No Psychological Hx Reported Smoking Status: Current every day smoker Past Alcohol Use History: None Reported, Daily Past Drug Use History: None Reported - Past Family History Father Additional Family Medical History / Comment(s): aortic valve replacement Mother Family Medical History: No Reported History General Exam Limitations: no limitations General appearance: alert, in no apparent distress Head exam: Present: atraumatic, normocephalic, normal inspection Eye exam: Present: normal appearance, PERRL, EOMI. Absent: scleral icterus, conjunctival injection, periorbital swelling ENT exam: Present: normal exam, mucous membranes moist Neck exam: Present: normal inspection. Absent: tenderness, meningismus, lymphadenopathy Respiratory exam: Present: normal lung sounds bilaterally. Absent: respiratory distress, wheezes, rales, rhonchi, stridor Cardiovascular Exam: Present: regular rate, normal rhythm, normal heart sounds. Absent: systolic murmur, diastolic murmur, rubs, gallop, clicks GI/Abdominal exam: Present: soft, normal bowel sounds. Absent: distended, tenderness, guarding, rebound, rigid Extremities exam: Present: normal inspection, full ROM, normal capillary refill. Absent: tenderness, pedal edema, joint swelling, calf tenderness Back exam: Present: normal inspection Neurological exam: Present: alert, oriented X3, CN II-XII intact Psychiatric exam: Present: normal affect, normal mood Skin exam: Present: warm, dry, intact, normal color. Absent: rash Course Vital Signs 05/02/21 05/03/21 05/03/21 21:28 06:04 06:51 Temperature 98.3 F 97.8 F 98.0 F Pulse Rate 69 76 71 Respiratory 20 20 20 Rate Blood Pressure 128/80 121/89 124/83 O2 Sat by Pulse 100 99 99 Oximetry - Reevaluation(s) Reevaluation #1: Medical records reviewed Patient still feeling short of breath and weak here in the ER Patient informed results questions answered Medical Decision Making - Medical Decision Making 56 male DF for ascites and swelling. Patient be admitted for therapeutic paracentesis. Patient given pain control. - Lab Data Result diagrams: 05/05/21 06:00 05/03/21 15:40 Lab Results 05/02/21 05/02/21 05/02/21 Range/Units 22:28 22:28 22:28 WBC 6.3 (3.8-10.6) k/uL RBC 2.71 L (4.30-5.90) m/uL Hgb 8.0 L D (13.0-17.5) gm/dL Hct 25.6 L (39.0-53.0) % MCV 94.6 (80.0-100.0) fL MCH 29.4 (25.0-35.0) pg MCHC 31.1 (31.0-37.0) g/dL RDW 20.6 H (11.5-15.5) % Plt Count (150-450) k/uL Plt Count Comment MPV 12.1 Immature Gran % (Auto) % Absolute Nucleated RBC (0.00-0.00) X 10*3/uL Neutrophils % 63 % Lymphocytes % 18 % Monocytes % 8 % Eosinophils % 9 % Basophils % 1 % Immature Gran # (0.00-0.04) X 10*3/uL Neutrophils # 4.0 (1.3-7.7) k/uL Lymphocytes # 1.1 (1.0-4.8) k/uL Monocytes # 0.5 (0-1.0) k/uL Eosinophils # 0.6 (0-0.7) k/uL Basophils # 0.0 (0-0.2) k/uL NRBC/100 WBC Diff (0.0-0.0) /100 WBCS Manual Slide Review Performed Immature Plt Fraction (1.1-6.1) % Hypochromasia Marked Poikilocytosis (manual Present Anisocytosis Moderate Macrocytosis Slight Ovalocytes Present Fragmented RBCs Present PT 13.6 H (9.0-12.0) sec INR 1.3 H (<1.2) APTT 29.8 (22.0-30.0) sec Sodium 135 L (137-145) mmol/L Potassium 4.5 (3.5-5.1) mmol/L Chloride 109 H (98-107) mmol/L Carbon Dioxide 24 (22-30) mmol/L Anion Gap 2 mmol/L BUN 19 (9-20) mg/dL Creatinine 1.12 (0.66-1.25) mg/dL Est GFR (CKD-EPI)AfAm 85 (>60 ml/min/1.73 sqM) Est GFR (CKD-EPI)NonAf 73 (>60 ml/min/1.73 sqM) Glucose 92 (74-99) mg/dL Plasma Lactic Acid [place] (0.7-2.0) mmol/L Calcium 8.1 L (8.4-10.2) mg/dL Phosphorus 3.5 (2.5-4.5) mg/dL Magnesium 1.8 (1.6-2.3) mg/dL Total Bilirubin 3.7 H (0.2-1.3) mg/dL AST 56 (17-59) U/L ALT 24 (4-49) U/L Alkaline Phosphatase 134 H (38-126) U/L Ammonia (<30) umol/L Creatine Kinase 54 L (55-170) U/L Troponin I (0.000-0.034) ng/mL NT-Pro-B Natriuret Pep pg/mL Total Protein 5.1 L (6.3-8.2) g/dL Albumin 2.3 L (3.5-5.0) g/dL Globulin g/dL Albumin/Globulin Ratio Urine Color Urine Appearance (Clear) Urine pH (5.0-8.0) Ur Specific [place] (1.001-1.035) Urine Protein (Negative) Urine Glucose (UA) (Negative) Urine Ketones (Negative) Urine Blood (Negative) Urine Nitrite (Negative) Urine Bilirubin (Negative) Urine Urobilinogen (<2.0) mg/dL Ur Leukocyte Esterase (Negative) Coronavirus (PCR) (Not Detectd) Blood Type Blood Type Recheck Bld Type Recheck Status Antibody Screen Transfuse Platelets Spec Expiration Date 05/02/21 05/02/21 05/02/21 Range/Units 22:28 22:28 22:28 WBC (3.8-10.6) k/uL RBC (4.30-5.90) m/uL Hgb (13.0-17.5) gm/dL Hct (39.0-53.0) % MCV (80.0-100.0) fL MCH (25.0-35.0) pg MCHC (31.0-37.0) g/dL RDW (11.5-15.5) % Plt Count (150-450) k/uL Plt Count Comment MPV Immature Gran % (Auto) % Absolute Nucleated RBC (0.00-0.00) X 10*3/uL Neutrophils % % Lymphocytes % % Monocytes % % Eosinophils % % Basophils % % Immature Gran # (0.00-0.04) X 10*3/uL Neutrophils # (1.3-7.7) k/uL Lymphocytes # (1.0-4.8) k/uL Monocytes # (0-1.0) k/uL Eosinophils # (0-0.7) k/uL Basophils # (0-0.2) k/uL NRBC/100 WBC Diff (0.0-0.0) /100 WBCS Manual Slide Review Immature Plt Fraction (1.1-6.1) % Hypochromasia Poikilocytosis (manual Anisocytosis Macrocytosis Ovalocytes Fragmented RBCs PT (9.0-12.0) sec INR (<1.2) APTT (22.0-30.0) sec Sodium (137-145) mmol/L Potassium (3.5-5.1) mmol/L Chloride (98-107) mmol/L Carbon Dioxide (22-30) mmol/L Anion Gap mmol/L BUN (9-20) mg/dL Creatinine (0.66-1.25) mg/dL Est GFR (CKD-EPI)AfAm (>60 ml/min/1.73 sqM) Est GFR (CKD-EPI)NonAf (>60 ml/min/1.73 sqM) Glucose (74-99) mg/dL Plasma Lactic Acid [place] 0.8 (0.7-2.0) mmol/L Calcium (8.4-10.2) mg/dL Phosphorus (2.5-4.5) mg/dL Magnesium (1.6-2.3) mg/dL Total Bilirubin (0.2-1.3) mg/dL AST (17-59) U/L ALT (4-49) U/L Alkaline Phosphatase (38-126) U/L Ammonia (<30) umol/L Creatine Kinase (55-170) U/L Troponin I <0.012 (0.000-0.034) ng/mL NT-Pro-B Natriuret Pep 276 pg/mL Total Protein (6.3-8.2) g/dL Albumin (3.5-5.0) g/dL Globulin g/dL Albumin/Globulin Ratio Urine Color Urine Appearance (Clear) Urine pH (5.0-8.0) Ur Specific [place] (1.001-1.035) Urine Protein (Negative) Urine Glucose (UA) (Negative) Urine Ketones (Negative) Urine Blood (Negative) Urine Nitrite (Negative) Urine Bilirubin (Negative) Urine Urobilinogen (<2.0) mg/dL Ur Leukocyte Esterase (Negative) Coronavirus (PCR) (Not Detectd) Blood Type Blood Type Recheck Bld Type Recheck Status Antibody Screen Transfuse Platelets Spec Expiration Date 05/02/21 05/02/21 05/03/21 Range/Units 23:30 23:34 15:40 WBC (3.8-10.6) k/uL RBC (4.30-5.90) m/uL Hgb (13.0-17.5) gm/dL Hct (39.0-53.0) % MCV (80.0-100.0) fL MCH (25.0-35.0) pg MCHC (31.0-37.0) g/dL RDW (11.5-15.5) % Plt Count (150-450) k/uL Plt Count Comment MPV Immature Gran % (Auto) % Absolute Nucleated RBC (0.00-0.00) X 10*3/uL Neutrophils % % Lymphocytes % % Monocytes % % Eosinophils % % Basophils % % Immature Gran # (0.00-0.04) X 10*3/uL Neutrophils # (1.3-7.7) k/uL Lymphocytes # (1.0-4.8) k/uL Monocytes # (0-1.0) k/uL Eosinophils # (0-0.7) k/uL Basophils # (0-0.2) k/uL NRBC/100 WBC Diff (0.0-0.0) /100 WBCS Manual Slide Review Immature Plt Fraction (1.1-6.1) % Hypochromasia Poikilocytosis (manual Anisocytosis Macrocytosis Ovalocytes Fragmented RBCs PT (9.0-12.0) sec INR (<1.2) APTT (22.0-30.0) sec Sodium 135 L (137-145) mmol/L Potassium 4.6 (3.5-5.1) mmol/L Chloride 110 H (98-107) mmol/L Carbon Dioxide 26 (22-30) mmol/L Anion Gap -1 mmol/L BUN 18 (9-20) mg/dL Creatinine 1.12 (0.66-1.25) mg/dL Est GFR (CKD-EPI)AfAm 85 (>60 ml/min/1.73 sqM) Est GFR (CKD-EPI)NonAf 73 (>60 ml/min/1.73 sqM) Glucose 114 H (74-99) mg/dL Plasma Lactic Acid [place] (0.7-2.0) mmol/L Calcium 7.9 L (8.4-10.2) mg/dL Phosphorus (2.5-4.5) mg/dL Magnesium (1.6-2.3) mg/dL Total Bilirubin 2.4 H (0.2-1.3) mg/dL AST 45 (17-59) U/L ALT 20 (4-49) U/L Alkaline Phosphatase 104 (38-126) U/L Ammonia (<30) umol/L Creatine Kinase (55-170) U/L Troponin I (0.000-0.034) ng/mL NT-Pro-B Natriuret Pep pg/mL Total Protein 4.4 L (6.3-8.2) g/dL Albumin 1.9 L (3.5-5.0) g/dL Globulin 2.5 g/dL Albumin/Globulin Ratio 0.8 Urine Color Dark Yellow Urine Appearance Clear (Clear) Urine pH 6.0 (5.0-8.0) Ur Specific [place] 1.026 (1.001-1.035) Urine Protein Trace H (Negative) Urine Glucose (UA) Negative (Negative) Urine Ketones Negative (Negative) Urine Blood Negative (Negative) Urine Nitrite Negative (Negative) Urine Bilirubin 1+ H (Negative) Urine Urobilinogen 3.0 (<2.0) mg/dL Ur Leukocyte Esterase Negative (Negative) Coronavirus (PCR) Not Detected (Not Detectd) Blood Type Blood Type Recheck Bld Type Recheck Status Antibody Screen Transfuse Platelets Spec Expiration Date 05/04/21 05/04/21 05/04/21 Range/Units 07:48 07:48 09:26 WBC 6.65 (3.8-10.6) k/uL RBC 2.54 L (4.30-5.90) m/uL Hgb 7.5 L (13.0-17.5) gm/dL Hct 24.5 L (39.0-53.0) % MCV 96.5 (80.0-100.0) fL MCH 29.5 (25.0-35.0) pg MCHC 30.6 L (31.0-37.0) g/dL RDW 21.1 H (11.5-15.5) % Plt Count 34 L (150-450) k/uL Plt Count Comment A MPV Immature Gran % (Auto) 0.3 % Absolute Nucleated RBC 0 (0.00-0.00) X 10*3/uL Neutrophils % 60.5 % Lymphocytes % 17.7 % Monocytes % 9.9 % Eosinophils % 10.8 % Basophils % 0.8 % Immature Gran # 0.02 (0.00-0.04) X 10*3/uL Neutrophils # 4.02 (1.3-7.7) k/uL Lymphocytes # 1.18 (1.0-4.8) k/uL Monocytes # 0.66 (0-1.0) k/uL Eosinophils # 0.72 H (0-0.7) k/uL Basophils # 0.05 (0-0.2) k/uL NRBC/100 WBC Diff 0 (0.0-0.0) /100 WBCS Manual Slide Review Immature Plt Fraction 13.1 H (1.1-6.1) % Hypochromasia Poikilocytosis (manual Anisocytosis Macrocytosis Ovalocytes Fragmented RBCs PT 13.5 H (9.0-12.0) sec INR 1.3 H (<1.2) APTT (22.0-30.0) sec Sodium (137-145) mmol/L Potassium (3.5-5.1) mmol/L Chloride (98-107) mmol/L Carbon Dioxide (22-30) mmol/L Anion Gap mmol/L BUN (9-20) mg/dL Creatinine (0.66-1.25) mg/dL Est GFR (CKD-EPI)AfAm (>60 ml/min/1.73 sqM) Est GFR (CKD-EPI)NonAf (>60 ml/min/1.73 sqM) Glucose (74-99) mg/dL Plasma Lactic Acid [place] (0.7-2.0) mmol/L Calcium (8.4-10.2) mg/dL Phosphorus (2.5-4.5) mg/dL Magnesium (1.6-2.3) mg/dL Total Bilirubin (0.2-1.3) mg/dL AST (17-59) U/L ALT (4-49) U/L Alkaline Phosphatase (38-126) U/L Ammonia 67 H (<30) umol/L Creatine Kinase (55-170) U/L Troponin I (0.000-0.034) ng/mL NT-Pro-B Natriuret Pep pg/mL Total Protein (6.3-8.2) g/dL Albumin (3.5-5.0) g/dL Globulin g/dL Albumin/Globulin Ratio Urine Color Urine Appearance (Clear) Urine pH (5.0-8.0) Ur Specific [place] (1.001-1.035) Urine Protein (Negative) Urine Glucose (UA) (Negative) Urine Ketones (Negative) Urine Blood (Negative) Urine Nitrite (Negative) Urine Bilirubin (Negative) Urine Urobilinogen (<2.0) mg/dL Ur Leukocyte Esterase (Negative) Coronavirus (PCR) (Not Detectd) Blood Type Blood Type Recheck Bld Type Recheck Status Antibody Screen Transfuse Platelets Spec Expiration Date 05/04/21 05/04/21 05/05/21 Range/Units 11:55 17:20 06:00 WBC (3.8-10.6) k/uL RBC (4.30-5.90) m/uL Hgb (13.0-17.5) gm/dL Hct (39.0-53.0) % MCV (80.0-100.0) fL MCH (25.0-35.0) pg MCHC (31.0-37.0) g/dL RDW (11.5-15.5) % Plt Count 51 L 59 L (150-450) k/uL Plt Count Comment MPV 9.6 9.8 Immature Gran % (Auto) % Absolute Nucleated RBC (0.00-0.00) X 10*3/uL Neutrophils % % Lymphocytes % % Monocytes % % Eosinophils % % Basophils % % Immature Gran # (0.00-0.04) X 10*3/uL Neutrophils # (1.3-7.7) k/uL Lymphocytes # (1.0-4.8) k/uL Monocytes # (0-1.0) k/uL Eosinophils # (0-0.7) k/uL Basophils # (0-0.2) k/uL NRBC/100 WBC Diff (0.0-0.0) /100 WBCS Manual Slide Review Immature Plt Fraction (1.1-6.1) % Hypochromasia Poikilocytosis (manual Anisocytosis Macrocytosis Ovalocytes Fragmented RBCs PT (9.0-12.0) sec INR (<1.2) APTT (22.0-30.0) sec Sodium (137-145) mmol/L Potassium (3.5-5.1) mmol/L Chloride (98-107) mmol/L Carbon Dioxide (22-30) mmol/L Anion Gap mmol/L BUN (9-20) mg/dL Creatinine (0.66-1.25) mg/dL Est GFR (CKD-EPI)AfAm (>60 ml/min/1.73 sqM) Est GFR (CKD-EPI)NonAf (>60 ml/min/1.73 sqM) Glucose (74-99) mg/dL Plasma Lactic Acid [place] (0.7-2.0) mmol/L Calcium (8.4-10.2) mg/dL Phosphorus (2.5-4.5) mg/dL Magnesium (1.6-2.3) mg/dL Total Bilirubin (0.2-1.3) mg/dL AST (17-59) U/L ALT (4-49) U/L Alkaline Phosphatase (38-126) U/L Ammonia (<30) umol/L Creatine Kinase (55-170) U/L Troponin I (0.000-0.034) ng/mL NT-Pro-B Natriuret Pep pg/mL Total Protein (6.3-8.2) g/dL Albumin (3.5-5.0) g/dL Globulin g/dL Albumin/Globulin Ratio Urine Color Urine Appearance (Clear) Urine pH (5.0-8.0) Ur Specific [place] (1.001-1.035) Urine Protein (Negative) Urine Glucose (UA) (Negative) Urine Ketones (Negative) Urine Blood (Negative) Urine Nitrite (Negative) Urine Bilirubin (Negative) Urine Urobilinogen (<2.0) mg/dL Ur Leukocyte Esterase (Negative) Coronavirus (PCR) (Not Detectd) Blood Type O Positive Blood Type Recheck O Pos Bld Type Recheck Status No Antibody Screen NEGATIVE Transfuse Platelets 05/05/21 Spec Expiration Date 05/07/20219 - EKG Data -: EKG Interpreted by Me (EKG sinus rhythm 68 MS 144 QRS 86 QTc 429) - Radiology Data Radiology results: report reviewed (Chest x-rays negative for acute disease), image reviewed Disposition Clinical Impression: Alcoholic cirrhosis of liver, Ascites Disposition: ADMITTED IP TO THIS HOSP Condition: Good Is patient prescribed a controlled substance at d/c from ED?: No
--- NOTE | 2021-05-02 22:41 | XR ---
EXAMINATION TYPE: XR chest 2V DATE OF EXAM: 05/02/2021 COMPARISON: 03/21/2021 HISTORY: Weakness TECHNIQUE: 2 views FINDINGS: Heart and mediastinum are normal. Lungs are clear of consolidation. There is some linear de nsity in the right midlung. IMPRESSION: Mild subsegmental atelectasis. There is improvement in the pleural reaction left posterio r lung base compared to last exam. Normal heart.
[2021-05-02 22:49] LABS: HCT 25.6 % (39.0-53.0); MCH 29.4 pg (25.0-35.0); MCHC 31.1 g/dL (31.0-37.0); MCV 94.6 fL (80.0-100.0); RBC 2.71 m/uL (4.30-5.90); WBC 6.3 k/uL (3.8-10.6)
[2021-05-02 22:50] LABS: Anisocytosis Moderate; Basophils % (A) 1 %; Eosinophils # (A) 0.6 k/uL (0-0.7); Eosinophils % (A) 9 %; Hypochromasia Marked; Lymphocytes # (A) 1.1 k/uL (1.0-4.8); Lymphocytes % (A) 18 %; Macrocytosis Slight; Mean Platelet Volume 12.1; Monocytes # (A) 0.5 k/uL (0-1.0); Monocytes % (A) 8 %; Neutrophils % (A) 63 %; RDW 20.6 % (11.5-15.5)
[2021-05-02 22:54] LABS: Albumin 2.3 g/dL (3.5-5.0); Calcium 8.1 mg/dL (8.4-10.2); Magnesium 1.8 mg/dL (1.6-2.3); Phosphorus 3.5 mg/dL (2.5-4.5); Potassium 4.5 mmol/L (3.5-5.1); Total Bilirubin 3.7 mg/dL (0.2-1.3); Total Protein 5.1 g/dL (6.3-8.2)
[2021-05-02 22:57] LABS: INR 1.3 (<1.2); Partial Thromboplastin Time 29.8 sec (22.0-30.0); Prothrombin Time 13.6 sec (9.0-12.0)
[2021-05-02 23:26] LABS: Ovalocytes Present; Poikilocytosis (M) Present; RBC Fragments Present
[2021-05-03 00:12] LABS: Appearance,Urine Clear (Clear); Bilirubin,Urine 1+ (Negative); Blood,Urine Negative (Negative); Color,Urine Dark Yellow; Glucose,Urine (UA) Negative (Negative); Ketones,Urine Negative (Negative); Leukocyte Esterase,Urine Negative (Negative); Nitrite,Urine Negative (Negative); Protein,Urine Trace (Negative); Specific Gravity,Urine 1.026 (1.001-1.035)
[2021-05-03] MEDS ORDERED: NALOXONE 0.4 MG/ML 1 ML VIAL IV PRN (01:33)
[2021-05-03] MEDS ORDERED: ONDANSETRON 4 MG/2 ML VIAL IVP PRN (01:33)
[2021-05-03] MEDS ORDERED: DIAZEPAM 5 MG/ML 2 ML INJ IVP STA (01:35)
[2021-05-03] MEDS: MORPHINE SULFATE 4 MG/ML SYRINGE IV PRN ×2 (06:02→20:48)
[2021-05-03 16:06] LABS: ALT 20 U/L (4-49); AST 45 U/L (17-59); African American GFR (CKD) 85 (>60 ml/min/1.73 sqM); Albumin 1.9 g/dL (3.5-5.0); Albumin/Globulin Ratio 0.8; Alkaline Phosphatase 104 U/L (38-126); Anion Gap -1 mmol/L; Blood Urea Nitrogen 18 mg/dL (9-20); Calcium 7.9 mg/dL (8.4-10.2); Carbon Dioxide 26 mmol/L (22-30); Chloride 110 mmol/L (98-107); Globulin 2.5 g/dL; Glucose 114 mg/dL (74-99); Non-African American GFR(CKD) 73 (>60 ml/min/1.73 sqM); Potassium 4.6 mmol/L (3.5-5.1); Sodium 135 mmol/L (137-145); Total Bilirubin 2.4 mg/dL (0.2-1.3); Total Protein 4.4 g/dL (6.3-8.2)
[2021-05-03] MEDS: LACTULOSE 20 GM/30 ML CUP PO SCH ×2 (17:24→20:45)
[2021-05-03] MEDS: PROPRANOLOL 10 MG TAB PO SCH ×2 (17:24→20:45)
--- NOTE | 2021-05-03 17:33 | HP ---
HISTORY AND PHYSICAL DATE OF SERVICE: 05/03/2021 CHIEF COMPLAINT: Shortness of breath. HISTORY OF PRESENT ILLNESS: This 56-year-old gentleman with a past medical history of sleep apnea, history of SVT, history of neuropathy, liver failure, being followed by Dr. Cherry Ortiz also had features of alcoholic liver disease. The patient was complaining of abdomen distention and pain, taken to [facility]. Patient found to have significant ascites. Patient admitted for further evaluation and treatment. There is no history of fever, rigors. No headache, loss of consciousness or seizures. The patient was recently admitted to [facility] with acute hepatic encephalopathy. The patient had paracentesis of 5.31 L at that time. PAST MEDICAL HISTORY: Sleep apnea, supraventricular tachycardia, peripheral neuropathy, history of nicotine dependence, alcoholic cirrhosis, CPAP, smoking. MEDICATIONS: Home medications are: Thiamin, propranolol, Protonix, multivitamins, Toprol-XL, Cephulac, folic acid, Vibramycin, Elavil, Ventolin. ALLERGIES: CIPRO, GABAPENTIN, SOCIAL HISTORY: History of alcohol intake on a daily basis previously. History of smoking currently. FAMILY HISTORY: History of aortic valve replacement in the family. REVIEW OF SYSTEMS: ENT: No diminished vision. No diminished hearing. CARDIOVASCULAR: No angina or palpitations. RESPIRATION: Shortness of breath. GI: As mentioned earlier. : As mentioned earlier. Nervous System: No numbness or weakness. ALLERGY/IMMUNOLOGY: No asthma or hayfever. MUSCULOSKELETAL as mentioned earlier. HEMATOLOGY/ONCOLOGY: No history of anemia. ENDOCRINE: No history of diabetes or hypothyroidism. CONSTITUTIONAL: As mentioned earlier. DERMATOLOGY: Negative. RHEUMATOLOGY: Negative. PSYCHIATRIC: As mentioned earlier. PHYSICAL EXAMINATION: Alert and oriented times three. Pulse 81, blood pressure 125/84, respiration 18, temperature 97.4, pulse ox 97% on room air. HEENT: Conjunctivae normal. NECK: No JVD. CARDIOVASCULAR: S1, S2 muffled. RESPIRATORY: Breath sounds diminished in the bases. Scattered rhonchi and crackles. ABDOMEN: Soft, obese, tense ascites present. LEGS: Minimal leg edema. NERVOUS SYSTEM: Higher functions as mentioned. Moves all four limbs. No focal motor or sensory deficits. LYMPHATICS: No lymph nodes palpable in the neck, axillae or groin. SKIN: No ulcer, no rash and no bleeding. JOINTS: No active deforming arthropathy. LABS: WBC 6.2, hemoglobin is 8 and platelets are_. INR 1.3. Sodium 135. Ammonia is not available. UA noted. ASSESSMENT: 1. Acute ascites secondary to cirrhosis of the liver. 2. Alcoholic liver cirrhosis. 3. Anemia, normocytic anemia secondary to cirrhosis of the liver. 4. Mild coagulopathy secondary to chronic liver disease. 5. Hyponatremia. 6. Elevated bilirubin secondary to alcoholic liver cirrhosis. 7. Hypoalbuminemia with mild protein calorie malnutrition. 8. Obstructive sleep apnea, on CPAP. 9. History of supraventricular tachycardia. 10.History of peripheral neuropathy. 11.History of hepatic encephalopathy. 12.History of nicotine dependence. 13.History of ETOH. 14.FULL CODE. RECOMMENDATIONS AND DISCUSSION: Recommend to continue current medications, symptomatic treatment. Otherwise, at this time I recommend interventional radiology consultation as well as ascitic tap. Guarded prognosis because of multiple complex medical issues. Further recommendations to follow. A copy of dictation being forwarded to Dr. Ortiz who is the primary care physician. MMTELLOL / CANDIN: [id number] / MTDD
[2021-05-03] MEDS ORDERED: ALBUTEROL NEBULIZED 2.5 MG/3 ML INHALATION SCH (20:00)
[2021-05-03] MEDS: PANTOPRAZOLE 40 MG/10 ML VIAL IVP SCH (20:44)
[2021-05-03] MEDS: AMITRIPTYLINE HCL 50 MG TAB PO SCH (20:44)
[2021-05-03] MEDS: DOXYCYCLINE 100 MG CAP PO SCH (20:44)
[2021-05-03] MEDS: RIFAXIMIN 550 MG TABLET PO SCH (20:45)
[2021-05-03] MEDS ORDERED: IPRATROPIUM-ALBUTEROL 3 ML NEB INHALATION PRN (22:05)
[2021-05-04] MEDS: IPRATROPIUM-ALBUTEROL 3 ML NEB INHALATION SCH ×4 (07:55→19:56)
[2021-05-04] MEDS: MULTIVITAMINS, THERA 1 EACH TAB PO SCH (08:50)
[2021-05-04] MEDS: DOXYCYCLINE 100 MG CAP PO SCH ×2 (08:50→20:23)
[2021-05-04] MEDS: RIFAXIMIN 550 MG TABLET PO SCH ×2 (08:50→20:23)
[2021-05-04] MEDS: PROPRANOLOL 10 MG TAB PO SCH ×3 (08:51→20:23)
[2021-05-04] MEDS: METOPROLOL SUCCINATE (ER) 25 MG TAB.ER.24H PO SCH (08:51)
[2021-05-04] MEDS: FOLIC ACID 1 MG TAB PO SCH (08:51)
[2021-05-04] MEDS: THIAMINE 100 MG TAB PO SCH (08:51)
[2021-05-04] MEDS: PANTOPRAZOLE 40 MG/10 ML VIAL IVP SCH ×2 (08:52→20:22)
[2021-05-04] MEDS: LACTULOSE 20 GM/30 ML CUP PO SCH ×4 (08:52→20:23)
[2021-05-04 10:55] LABS: INR 1.3 (<1.2); Prothrombin Time 13.5 sec (9.0-12.0)
--- NOTE | 2021-05-04 11:05 | US ---
EXAMINATION TYPE: US abdomen limited DATE OF EXAM: 05/04/2021 COMPARISON: 03/23/2021 CLINICAL HISTORY: 56-year-old male evaluate for fluid pocket for paracentesis. TECHNIQUE: The 4 abdominal quadrants were scanned for assessment of ascites fluid. FINDINGS: Mild abdominal ascites within all 4 quadrants. IMPRESSION: Mild abdominal ascites within all 4 quadrants.
[2021-05-04 12:15] LABS: Basophils # (A) 0.05 X 10*3/uL (0.00-0.10); Basophils % (A) 0.8 %; Eosinophils # (A) 0.72 X 10*3/uL (0.04-0.35); Eosinophils % (A) 10.8 %; HCT 24.5 % (39.6-50.0); HGB 7.5 g/dL (13.0-17.0); Lymphocytes # (A) 1.18 X 10*3/uL (0.90-5.00); Lymphocytes % (A) 17.7 %; MCH 29.5 pg (27.0-32.0); MCHC 30.6 g/dL (32.0-37.0); MCV 96.5 fL (80.0-97.0); Monocytes # (A) 0.66 X 10*3/uL (0.20-1.00); Monocytes % (A) 9.9 %; Neutrophils # (A) 4.02 X 10*3/uL (1.80-7.70); Neutrophils % (A) 60.5 %; Platelet Count 34 X 10*3/uL (140-440); RBC 2.54 X 10*6/uL (4.40-5.60); RDW 21.1 % (11.5-14.5); WBC 6.65 X 10*3/uL (4.50-10.00)
[2021-05-04 12:36] LABS: Mean Platelet Volume 9.6; Platelet Count 51 k/uL (150-450)
--- NOTE | 2021-05-04 16:36 | P.PN ---
Subjective Progress Note Date: 05/04/21 This is a 56-year-old male who was recently admitted increasing abdominal distention and pain and is being closely monitored. Patient does have significant ascites and does have features of alcoholic liver disease. Patient was scheduled to receive possible paracentesis today although platelets were fou nd to be low with repeat platelet being 51 and interventional radiology ordered a repeat platelet count prior to the procedure. Repeat platelets continue to be pending. Interventional radiology also requested transfusion of platelets with repeat platelet count. Patient unable to receive paracentesis today and will be done in the morning. Patient's ammonia level is 67 today. Patient to continue with lactulose as scheduled. Patient is alert and oriented 3. Open is stable at 7.5 and most recent INR is 1.3. Will repeat a.m. labs and continue to monitor closely. Review of systems: Constitutional: No reports of fatigue, fever, or chills Cardiovascular: No reports of chest pain or palpitations Respiratory: No reports of shortness of breath or cough GI: No reports of nausea, vomiting, or diarrhea, reports abdominal distention and discomfort : No reports of dysuria or retention Neurovascular: No reports of weakness or numbness All medications have been reviewed Objective - Vital Signs Vital signs: Vital Signs Temp 97.8 F 05/04/21 15:00 Pulse 75 05/04/21 15:00 Resp 16 05/04/21 15:00 BP 126/80 05/04/21 15:00 Pulse Ox 95 05/04/21 15:00 Intake & Output 05/03/21 05/04/21 05/04/21 18:59 06:59 18:59 Weight 126.099 kg Other: Voiding Method Toilet Toilet Toilet # Voids 1 2 2 - Exam Gen: This is a 56-year-old male lying in bed awake, alert and oriented 3, well- developed, well-nourished. HEENT: Head is atraumatic, normocephalic. Pupils equal, round. Sclerae is anicteric. NECK: Supple. No JVD. No lymphadenopathy. No thyromegaly. LUNGS: Diminished breath sounds with some scattered rhonchi and crackles noted. No intercostal retractions. HEART: Regular rate and rhythm. S1, S2 are muffled ABDOMEN: Soft. Distended. Bowel sounds are present. No masses. No tenderness. EXTREMITIES: Minimal lower extremity leg edema noted NEUROLOGICAL: Patient is awake, alert and oriented x3. Cranial nerves 2 through 12 are grossly intact. - Labs CBC & Chem 7: 05/04/21 11:55 05/03/21 15:40 Labs: Abnormal Lab Results - Last 24 Hours (Table) 05/04/21 05/04/21 05/04/21 Range/Units 07:48 07:48 09:26 RBC 2.54 L (4.40-5.60) X 10*6/uL Hgb 7.5 L (13.0-17.0) g/dL Hct 24.5 L (39.6-50.0) % MCHC 30.6 L (32.0-37.0) g/dL RDW 21.1 H (11.5-14.5) % Plt Count 34 L (140-440) X 10*3/uL Plt Count Comment A Eosinophils # 0.72 H (0.04-0.35) X 10*3/uL Immature Plt Fraction 13.1 H (1.1-6.1) % PT 13.5 H (9.0-12.0) sec INR 1.3 H (<1.2) Ammonia 67 H (<30) umol/L 05/04/21 Range/Units 11:55 RBC (4.40-5.60) X 10*6/uL Hgb (13.0-17.0) g/dL Hct (39.6-50.0) % MCHC (32.0-37.0) g/dL RDW (11.5-14.5) % Plt Count 51 L (140-440) X 10*3/uL Plt Count Comment Eosinophils # (0.04-0.35) X 10*3/uL Immature Plt Fraction (1.1-6.1) % PT (9.0-12.0) sec INR (<1.2) Ammonia (<30) umol/L Assessment and Plan Assessment: Acute ascites secondary to cirrhosis of the liver Alcoholic liver cirrhosis Acute thrombocytopenia possibly secondary to chronic liver disease Anemia, normocytic anemia secondary to cirrhosis of the liver Mild coagulopathy secondary to chronic liver disease Hyponatremia Elevated bilirubin secondary to alcohol liver cirrhosis hypoalbuminemia with mild protein calorie malnutrition Obstructive apnea, on CPAP History of SVT History of peripheral neuropathy history of hepatic encephalopathy history of nicotine dependence history of EtOH Full code Recommendations and discussion: Recommend to continue with current medications and current management. Patient was scheduled for paracentesis although platelets were found to be low with repeat platelets being 51 and per radiology recommending further repeat platelet count which continues to be pending and will not be available today to perform the paracentesis. Platelet transfusion ordered as needed if platelets are found to be low on repeat. Will order repeat a.m. labs and plans are for paracentesis in the morning with possibility of discharge after paracentesis. Due to multiple complex medical issues, prognosis is guarded. Further recommendations to follow.
[2021-05-04] MEDS: MORPHINE SULFATE 4 MG/ML SYRINGE IV PRN (17:32)
[2021-05-04] MEDS: AMITRIPTYLINE HCL 50 MG TAB PO SCH ×2 (20:22→20:23)
[2021-05-05] MEDS: MORPHINE SULFATE 4 MG/ML SYRINGE IV PRN ×2 (00:30→04:41)
[2021-05-05 07:45] LABS: Mean Platelet Volume 9.8
[2021-05-05 07:49] LABS: Platelet Count 59 k/uL (150-450)
[2021-05-05] MEDS: IPRATROPIUM-ALBUTEROL 3 ML NEB INHALATION SCH ×3 (07:49→11:15)
[2021-05-05 08:14] VITALS: TEMP 98.2
[2021-05-05] MEDS: METOPROLOL SUCCINATE (ER) 25 MG TAB.ER.24H PO SCH (10:12)
[2021-05-05] MEDS: PANTOPRAZOLE 40 MG/10 ML VIAL IVP SCH (10:12)
[2021-05-05] MEDS: DOXYCYCLINE 100 MG CAP PO SCH (10:13)
[2021-05-05] MEDS: RIFAXIMIN 550 MG TABLET PO SCH (10:13)
[2021-05-05] MEDS: LACTULOSE 20 GM/30 ML CUP PO SCH ×2 (10:14→13:07)
[2021-05-05] MEDS: PROPRANOLOL 10 MG TAB PO SCH (10:27)
[2021-05-05] MEDS: FOLIC ACID 1 MG TAB PO SCH (13:07)
[2021-05-05] MEDS: THIAMINE 100 MG TAB PO SCH (13:07)
[2021-05-05] MEDS: MULTIVITAMINS, THERA 1 EACH TAB PO SCH (13:07)
[2021-05-05 13:19] VITALS: RESP 18
--- NOTE | 2021-05-05 14:03 | US ---
Ultrasound-guided paracentesis. DATE OF EXAM: 05/05/2021 CLINICAL HISTORY: Ascites The procedure was discussed with the patient. The risks, complications, benefits, and alternatives we re discussed and any questions were answered. Informed consent was obtained. The patient was placed s upine on the ultrasound table and prepped and draped in the usual sterile fashion. All elements of maximal barrier technique were utilized. Under ultrasound guidance, access into the right lower quadrant was obtained, via the paracentesis catheter system and direct ultrasound guidanc e. Approximately 7.5 liters of straw-colored fluid was removed. The patient was stable throughout the pr ocedure and remained stable upon discharge from Department of Radiology. IMPRESSION: Successful paracentesis under ultrasound guidance.
[2021-05-05] MEDS: ALBUMIN HUMAN 25% 50 ML in EMPTY BAG 1 BAG IVPB SCH ×2 (14:11→14:36)
[2021-05-05 15:06] VITALS: BP 106/68; PULSE 83
--- NOTE | 2021-05-06 09:04 | P.DS ---
Providers Date of admission: 05/05/21 09:36 Expected date of discharge: 05/05/21 Attending physician: Manuel Meyers [facility]: Final diagnosis Acute ascites secondary to cirrhosis of the liver Status post paracentesis with 7.5 L removed Alcoholic liver cirrhosis Acute thrombocytopenia possibly secondary to chronic liver disease Anemia, normocytic anemia secondary to cirrhosis of the liver Mild coagulopathy secondary to chronic liver disease Hyponatremia Elevated bilirubin secondary to alcohol liver cirrhosis hypoalbuminemia with mild protein calorie malnutrition Obstructive apnea, on CPAP History of SVT History of peripheral neuropathy history of hepatic encephalopathy history of nicotine dependence history of EtOH Full code Discharge disposition Patient is being discharged in a stable condition with guarded prognosis to home. Patient will follow-up with Dr. Cherry Renee in the outpatient setting upon discharge. Patient is also to follow-up with Dr. Everett his GI upon di scharge. Recommend repeat labs in prescriptions provided. Total time taken is greater than 35 minutes. Hospital course This is a 56-year-old male who was recently admitted with abdominal distention and pain and was being closely monitored. Patient was found to have significant ascites along with features of alcoholic liver disease. Patient does follow with Dr. Everett in the [place] area as his billing spec and would like to continue there. Patient was scheduled receive a paracentesis yesterday although platelets were found to be low and repeat platelets today are 59 and patient will undergo paracentesis. Patient underwent ultrasound-guided paracentesis with approximately 7.5 L removed and will receive an albumin infusion prior to discharge. Recommend close follow-up with his GI and repeat labs to monitor CBC and BMP closely. Patient was restarted on Lasix and Aldactone and will continue in the outpatient setting. Patient also having some mild scrotal swelling with no skin irritation noted in instructed the patient to elevate the scrotum on soft towel and monitor closely for any signs of excoriation or irritation to the skin. Patient also instructed to follow-up with primary care provider upon discharge. Currently no reports of chest pain, shortness of breath, or palpitations. Patient is afebrile. No reports of nausea or vomiting and patient is tolerating diet. Patient will be discharged home today. On exam vital signs are stable. Cardio S1, S2 are muffled. Respiratory system shows diminished breath sounds at the bases with no wheezing or rhonchi noted. Abdomen is soft and obese, and nontender. Nervous system shows no focal deficits. Please refer to medication reconciliation sheet for a list of medications. Patient Condition at Discharge: Good Plan - Discharge Summary Discharge Rx Participant: No New Discharge Prescriptions: New Furosemide [Lasix] 40 mg PO BID 30 Days #60 tablet Spironolactone [Aldactone] 50 mg PO BID 30 Days #60 tab Continue Propranolol HCl 10 mg PO TID Pantoprazole Sodium [Protonix] 40 mg PO DAILY Thiamine [Vitamin B-1] 100 mg PO DAILY@1200 30 Days #30 tab Amitriptyline HCl [Elavil] 50 mg PO HS Doxycycline Hyclate [Vibramycin] 100 mg PO BID Rifaximin [Xifaxan] 550 mg PO BID Metoprolol Succinate [Toprol XL] 25 mg PO DAILY Folic Acid 1 mg PO DAILY@1200 30 Days #30 tab Albuterol Sulfate [Ventolin HFA] 1 - 2 puff INHALATION RT-Q6H PRN PRN Reason: Shortness Of Breath Multivitamins, Thera [Multivitamin (formulary)] 1 tab PO DAILY@1200 Lactulose [Cephulac] 20 gm PO QID Discharge Medication List Propranolol HCl 10 mg PO TID 02/23/18 [History] Metoprolol Succinate [Toprol XL] 25 mg PO DAILY 03/21/21 [History] Pantoprazole Sodium [Protonix] 40 mg PO DAILY 03/21/21 [History] Rifaximin [Xifaxan] 550 mg PO BID 03/21/21 [History] Folic Acid 1 mg PO DAILY@1200 30 Days #30 tab 03/25/21 [Rx] Thiamine [Vitamin B-1] 100 mg PO DAILY@1200 30 Days #30 tab 03/25/21 [Rx] Albuterol Sulfate [Ventolin HFA] 1 - 2 puff INHALATION RT-Q6H PRN 05/03/21 [History] Amitriptyline HCl [Elavil] 50 mg PO HS 05/03/21 [History] Doxycycline Hyclate [Vibramycin] 100 mg PO BID 05/03/21 [History] Lactulose [Cephulac] 20 gm PO QID 05/03/21 [History] Multivitamins, Thera [Multivitamin (formulary)] 1 tab PO DAILY@1200 05/03/21 [History] Furosemide [Lasix] 40 mg PO BID 30 Days #60 tablet 05/04/21 [Rx] Spironolactone [Aldactone] 50 mg PO BID 30 Days #60 tab 05/04/21 [Rx] Follow up Appointment(s)/Referral(s): Cherry Ortiz MD [Primary Care Provider] - 1-2 days Ambulatory/Diagnostic Orders: Complete Blood Count w/diff [LAB.AMB] Time Frame: 2 Days, Location: None Selected Activity/Diet/Wound Care/Special Instructions: Discharge pending paracentesis Activity Limited until follow-up Follow-up with primary care provider upon discharge Follow-up GI outpatient Continue to elevate the scrotum and monitor for any skin irritation Continue current medications as prescribed Repeat labs in 2-3 days Discharge Disposition: HOME SELF-CARE
== END 2021-05-05 15:50 | disposition home or self-care (01) | DRG 433 ==
LOC: EC 20:11 → 6NMEDSUR 05-03 01:34 → OBSVTOIN 05-05 09:36
PROVIDERS: ADMIT Hospitalist; ATTEND Hospitalist
PROC: 0W9G3ZZ Drainage of Peritoneal Cavity, Percutaneous Approach (ICD-10-PCS; principal; 2021-05-05)
DX: K70.31 Alcoholic cirrhosis of liver with ascites (principal); D68.4 Acquired coagulation factor deficiency; E44.1 Mild protein-calorie malnutrition; Z68.41 Body mass index [BMI] 40.0-44.9, adult; E87.1 Hypo-osmolality and hyponatremia; I47.1 Supraventricular tachycardia; G47.33 Obstructive sleep apnea (adult) (pediatric); K72.90 Hepatic failure, unspecified without coma; D63.8 Anemia in other chronic diseases classified elsewhere; D69.59 Other secondary thrombocytopenia; E66.9 Obesity, unspecified; F17.210 Nicotine dependence, cigarettes, uncomplicated; F41.9 Anxiety disorder, unspecified; N50.89 Other specified disorders of the male genital organs; Z20.822 Contact with and (suspected) exposure to COVID-19; Z79.899 Other long term (current) drug therapy; Z99.89 Dependence on other enabling machines and devices; Z88.1 Allergy status to other antibiotic agents; Z88.7 Allergy status to serum and vaccine; Z88.8 Allergy status to other drugs, medicaments and biological substances
CPT/HCPCS: 36415; 49083; 71046; 76705; 80053; 81003; 82140; 82550; 83605; 83735; 83880; 84100; 84484; 85025; 85049; 85610; 85730; 86850; 86900; 86901; 87635; 93005; 99285